=== PATIENT | female | born 1980 | race Caucasian/White ===

== ENCOUNTER 2023-11-03 18:43 | Inpatient (IN) ==
[2023-11-03] MEDS ORDERED: KETOROLAC TROMETHAMINE 15 MG/ML VIAL IV STA (18:56)
[2023-11-03] MEDS ORDERED: ONDANSETRON INJ 2 MG/ML 2 ML VIAL IV STA (18:56)
[2023-11-03 19:31] LABS: Appearance Urine Clear (Clear); Bacteria Urine Automated Negative (Negative); Bilirubin Urine Negative (Negative); Blood Urine Negative (Negative); Color Urine Yellow; Epithelial Cell Urine Auto >30 /lpf (0-5); Glucose Urine UA Negative (Negative); Ketones Urine Trace (Negative); Leukocyte Esterase Urine Negative (Negative); Nitrite Urine Negative (Negative); Specific Gravity Urine 1.023 (1.000-1.030); Urobilinogen Urine Negative (Negative); pH Urine >= 9.0 (4.5-7.5)
[2023-11-03 19:34] LABS: Hemoglobin 12.6 g/dl (12.0-16.0); Mean Corpuscular Hemoglobin 31.7 pg (25.0-34.0); Mean Corpuscular Hgb Conc 34.1 g/dL (32.0-36.0); Mean Corpuscular Volume 93.2 fL (80.0-100.0); Mean Platelet Volume 11.9 fL (9.4-12.4); Platelet Count 202 K/uL (130-400); RDW Coefficient of Variation 12.4 % (11.5-14.5); RDW Standard Deviation 42.7 fL (36.4-46.3); Red Blood Count 3.97 M/uL (4.20-5.40)
[2023-11-03] MEDS ORDERED: MoRPHine SULFATE 4 MG/ML 1 ML CARP\\VIAL IV STA (19:43)
[2023-11-03] MEDS ORDERED: SODIUM CHLORIDE 0.9% 1,000 ML IV ONE (19:43)
[2023-11-03 19:49] LABS: Alanine Aminotransferase 5 U/L (7-52); Albumin Globulin Ratio 1.5 (0.9-2); Alkaline Phosphatase 70 U/L (34-104); Anion Gap 9 (3-11); Aspartate Aminotransferase 9 U/L (13-39); BUN Creatinine Ratio 11.1 (10-20); Bilirubin,Total 0.6 mg/dl (0.2-1.0); Blood Urea Nitrogen 6 mg/dl (6-23); Calcium 9.2 mg/dl (8.6-10.3); Carbon Dioxide 22 mmol/L (21-32); Chloride 105 mmol/L (98-107); Est GFR (Non-African American) 115.6 ml/min; Globulin 2.7 gm/dl (2.5-4.0); Glucose 112 mg/dl (70-99(Fasting)); Lipase 9 U/L (11-82); Sodium 136 mmol/L (136-145); Total Protein 6.7 gm/dl (6.0-8.3)
[2023-11-03 19:50] LABS: Basophils # (auto) 0.03 K/uL (0.00-0.20); Basophils % (auto) 0.3 %; Immature Granulocytes # (auto) 0.02 K/uL (0.01-0.20); Immature Granulocytes % (auto) 0.2 %; Lymphocytes % (auto) 5.7 %; Monocytes % (auto) 3.4 %; Neutrophils # (auto) 7.95 K/uL (1.40-6.50); Neutrophils % (auto) 90.4 %
[2023-11-03 19:55] LABS: Pregnancy Test, Serum Negative (Negative)
[2023-11-03 19:57] LABS: Protein Urine 1+ (Negative)
--- NOTE | 2023-11-03 20:02 | XRay Report ---
XR chest 1V portable HISTORY: 42 years-old Female left flank pain acute left-sided flank pain COMPARISON: None TECHNIQUE: AP view of the chest FINDINGS: Cardiomediastinal and hilar silhouettes are within normal limits. No pneumothorax, pleural effusion o r airspace consolidation. Bones appear grossly intact. IMPRESSION: No acute process. ACT 112: Negative or not required by law. The above report was generated using voice recognition software. It may contain grammatical, syntax o r spelling errors. Electronically signed by: Guru Driver M.D. 11/03/2023 8:01 PM
[2023-11-03] MEDS ORDERED: OPTIRAY 320 500ml IV ONE (20:15)
--- NOTE | 2023-11-03 20:15 | Emergency Department Note ---
Impression & Plan Acute left flank pain, Hematuria, Bradycardia, Lyme disease ED Provider Note NAME: CHANDAN ESTRADA AGE: 42 SEX: F : 1980 ARRIVES VIA: Ambulance INFORMANT: [Patient] ED PROVIDER(S): [Edgar Moffett MD] CHIEF COMPLAINT: Abdominal pain HISTORY OF PRESENT ILLNESS: The patient is a 42-year-old female who states that yesterday afternoon, she began having pain in the left flank and left lower back. The pain moved across to the left lower abdomen. She has had nausea and vomiting. The pain has been fairly severe. No fever. No urinary complaints, no diarrhea. The patient has no history of pain similar to this previously. She has never had a kidney stone. PMHx/PSHx/Social Hx: See Below PHYSICAL EXAM: GENERAL: Patient is in moderate distress from pain. HEENT: No acute trauma, normocephalic atraumatic, mucous membranes dry, no nasal congestion. NECK: No stridor, no adenopathy, no meningismus, trachea is midline. LUNGS: Clear to auscultation bilaterally, no wheeze, no rhonchi, breath sounds equal. HEART: Without murmurs gallops or rubs, regular rate and rhythm. ABDOMEN: Soft, tender in the left upper quadrant, no peritonitis. EXTREMITIES: No cyanosis, full range of motion of all the joints without pain or difficulty. NEUROLOGIC: Oriented x 3, no acute motor or sensory deficits, no focal weakness. SKIN: No jaundice, no diaphoresis. Back: Left flank discomfort to percussion. The pain does seem to worsen with movement and also with palpation of the left flank musculature. No rash. DIFFERENTIAL DIAGNOSIS: Renal colic, splenic injury, hydronephrosis, pyelonephritis, diverticulitis, pneumonia, among others. EMERGENCY DEPARTMENT PROCEDURES: MEDICAL DECISION MAKING: There is no leukocytosis or concerning anemia. There is no renal failure or significant electrolyte abnormality. No concerning liver enzyme elevation. No evidence for pancreatitis. testing is negative. Urinalysis does show some hematuria, no infection. Lyme disease testing was equivocally positive with a positive IgM and negative IgG. Chest film does not show pneumonia or CHF. No pneumothorax. Abdominal and pelvis CT does not show any evidence for ureteral stone or for hydronephrosis. No acute surgical process by CT imaging. Renal ultrasound does not show hydronephrosis or any other concerning pathology. On exam, she did have some left flank discomfort with percussion but also with palpation and her pain did seem to worsen with certain movements. She was quite bradycardic with a heart rate at times in the 30s. Patient received IV Toradol, IV Zofran, IV morphine. She was given IV saline and IV ceftriaxone. The ceftriaxone was for presumed Lyme disease. The patient presents with left flank discomfort which at this point appears musculoskeletal. I suppose she may have passed a small ureteral stone prior to the CT and ultrasound imaging. She was found to be quite bradycardic and has no history of this diagnosis. With a heart rate in the 30s, with her equivocally positive Lyme disease testing, I was concerned about the possibility of a Lyme induced dysrhythmia. I do think the patient requires cardiac monitoring and potentially further testing. I did speak with the patient and case management, the on-call hospitalist was consulted. Prior/Outside records/notes reviewed: EMS notes. ECG per my interpretation: Indication was bradycardia. The ECG shows a sinus bradycardia with a rate of 43. There is no ST elevation, no PVCs. The QTc is 395. Continuous Cardiac Monitoring per my interpretation: An order was placed for continuous cardiac monitoring. The monitor shows a rate of 50 with sinus bradycardia. Imaging/x-ray results per my interpretation: Chest x-ray does not show mediastinal widening, pneumonia or pneumothorax. Chronic Medical/Social conditions affecting care: Care/Management discussed with: Case management, the on-call hospitalist. 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) Social History Smoking Status: Current every day smoker Feels Safe at Home: Yes Allergies Allergies Allergy/AdvReac Type Severity Reaction Status Date / Time latex Allergy Unknown Unknown Verified 11/03/23 19:53 Home Meds Home Medications Medication Instructions Recorded Confirmed No Known Home Medications 11/03/23 11/03/23 Results & Data (ED) Vital Signs Vital Signs - 24 hr 11/03/23 18:47 11/03/23 20:03 11/03/23 20:09 Temperature 36.1 C L Temperature Source Temporal Artery Scan Pulse Rate 52 L 43 L Pulse Rate [Apical] 40 L Respiratory Rate 18 20 Respiratory Effort / Characteristics Non-Labored Spontaneous Non-Labored Respiratory Depth Normal Normal Blood Pressure 96/46 L Blood Pressure [Right Arm] 123/53 L Blood Pressure Mean 62 Blood Pressure Mean [Right Arm] 76 Blood Pressure Position [Right Arm] Lying Pulse Oximetry 100 100 Oxygen Delivery Method Room Air Room Air Sepsis Recent Fever Within 48 Hours No Sepsis New/Unexplained Change in Mental Status N/A Sepsis Action Taken by Nursing No Action Required 11/03/23 22:18 Temperature Temperature Source Pulse Rate Pulse Rate [Apical] 47 L Respiratory Rate 17 Respiratory Effort / Characteristics Non-Labored Spontaneous Respiratory Depth Normal Blood Pressure Blood Pressure [Right Arm] 99/57 L Blood Pressure Mean Blood Pressure Mean [Right Arm] 71 Blood Pressure Position [Right Arm] Pulse Oximetry 99 Oxygen Delivery Method Room Air Sepsis Recent Fever Within 48 Hours Sepsis New/Unexplained Change in Mental Status Sepsis Action Taken by Shelter Medications Current Medication List: was personally reviewed by me Laboratory Data Attestation: I reviewed the patient's lab results. 11/03/23 19:03 11/03/23 19:03 Lab Results 11/03/23 11/03/23 Range/Units 19:03 19:15 WBC 8.80 (4.8-10.8) K/ul RBC 3.97 L (4.20-5.40) M/uL Hgb 12.6 (12.0-16.0) g/dl Hct 37.0 (37.0-47.0) % MCV 93.2 (80.0-100.0) fL MCH 31.7 (25.0-34.0) pg MCHC 34.1 (32.0-36.0) g/dL RDW Std Deviation 42.7 (36.4-46.3) fL RDW Coeff of Leah 12.4 (11.5-14.5) % Plt Count 202 (130-400) K/uL MPV 11.9 (9.4-12.4) fL Immature Gran % (Auto) 0.2 % Neut % (Auto) 90.4 % Lymph % (Auto) 5.7 % [place] % (Auto) 3.4 % Eos % (Auto) 0.0 % Baso % (Auto) 0.3 % Neut # (Auto) 7.95 H (1.40-6.50) K/uL Lymph # (Auto) 0.50 L (1.20-3.40) K/uL [place] # (Auto) 0.30 (0.11-0.59) K/uL Eos # (Auto) 0.00 (0.00-0.50) K/uL Baso # (Auto) 0.03 (0.00-0.20) K/uL Immature Gran # (Auto) 0.02 (0.01-0.20) K/uL Sodium 136 (136-145) mmol/L Potassium 4.0 (3.5-5.1) mmol/L Chloride 105 (98-107) mmol/L Carbon Dioxide 22 (21-32) mmol/L Anion Gap 9 (3-11) BUN 6 (6-23) mg/dl Creatinine 0.54 L (0.6-1.2) mg/dl Est Cr Clr Drug Dosing Not Reportable Est GFR ( Amer) 134.0 ml/min Est GFR (Non-Af Amer) 115.6 ml/min BUN/Creatinine Ratio 11.1 (10-20) Glucose 112 H (70-99(Fasting)) mg/dl Calcium 9.2 (8.6-10.3) mg/dl Total Bilirubin 0.6 (0.2-1.0) mg/dl AST 9 L (13-39) U/L ALT 5 L (7-52) U/L Alkaline Phosphatase 70 (34-104) U/L Total Protein 6.7 (6.0-8.3) gm/dl Albumin 4.0 (3.4-5.0) gm/dl Globulin 2.7 (2.5-4.0) gm/dl Albumin/Globulin Ratio 1.5 (0.9-2) Lipase 9 L (11-82) U/L HCG, Qual Negative (Negative) Urine Color Yellow Urine Appearance Clear (Clear) Urine pH >= 9.0 H (4.5-7.5) Ur Specific [place] 1.023 (1.000-1.030) Urine Protein 1+ H (Negative) Urine Glucose (UA) Negative (Negative) Urine Ketones Trace H (Negative) Urine Blood Negative (Negative) Urine Nitrite Negative (Negative) Urine Bilirubin Negative (Negative) Urine Urobilinogen Negative (Negative) Ur Leukocyte Esterase Negative (Negative) Urine WBC (Auto) 1-5 (0-5) /hpf Urine RBC (Auto) 5-10 H (0-4) /hpf U Hyaline Cast (Auto) 10-30 H (0-5) /lpf U Epithel Cells (Auto) >30 H (0-5) /lpf Urine Bacteria (Auto) Negative (Negative) Lyme Disease IgG Ab Negative (Negative) Lyme Disease IgM Ab Positive A (Negative) Administered Medications Discontinued Medications Sodium Chloride (Nss) 1,000 mls @ 999 mls/hr IV .Q1H1M ONE Stop: 11/03/23 20:43 Last Admin: 11/03/23 20:04 Dose: 999 mls/hr Documented By: CHRIS Ceftriaxone Sodium (Rocephin) 2,000 mg in 50 mls @ 100 mls/hr IV NOW STA Stop: 11/03/23 22:26 Last Admin: 11/03/23 22:28 Dose: 100 mls/hr Documented By: WILLIAM Ioversol (Optiray 320 500ml) 94 ml IV ONCE ONE Stop: 11/03/23 20:16 Last Admin: 11/03/23 20:16 Dose: 94 ml Documented By: FRANCISCA Ketorolac Tromethamine (Ketorolac Tromethamine 15 Mg/Ml Vial) 15 mg IV NOW STA Stop: 11/03/23 18:57 Last Admin: 11/03/23 19:08 Dose: 15 mg Documented By: SHAYLA Morphine Sulfate (Morphine Sulfate 4 Mg/Ml 1 Ml Carp\Vial) 4 mg IV NOW STA Stop: 11/03/23 19:44 Last Admin: 11/03/23 20:04 Dose: 4 mg Documented By: CHRIS Ondansetron HCl (Ondansetron Inj 2 Mg/Ml 2 Ml Vial) 4 mg IV NOW STA Stop: 11/03/23 18:57 Last Admin: 11/03/23 19:08 Dose: 4 mg Documented By: AN Imaging Data Radiologist's Impression: Abdomen/Pelvis CT 11/03/23 19:43 Exam(s): CT ABDOMEN + PELVIS With Contrast IV Amt: 94ml opti 320 EXAM: CT Abdomen and Pelvis With Intravenous Contrast CLINICAL HISTORY: Reason for exam: luq pain. TECHNIQUE: Axial computed tomography images of the abdomen and pelvis with intravenous contrast. Automated exposure control was utilized for the study. A dose lowering technique was utilized adhering to the principles of ALARA. CONTRAST: Patient received 94ml opti 320 of IV contrast COMPARISON: CT abdomen and pelvis February 28, 2013. FINDINGS: Lung bases: Unremarkable. No mass. No consolidation. ABDOMEN: Liver: Unremarkable. No mass. Gallbladder and bile ducts: Unremarkable. No calcified stones. No ductal dilation. Pancreas: Unremarkable. No mass. No ductal dilation. Spleen: Unremarkable. No splenomegaly. Adrenals: Unremarkable. No mass. Kidneys and ureters: Unremarkable. No solid mass. No hydronephrosis. Stomach and bowel: Unremarkable. No acute diverticulitis. No bowel obstruction. No free intraperitoneal air. PELVIS: Appendix: Normal appendix. Bladder: Decompressed urinary bladder. Reproductive: RIGHT ovarian cyst measures 2.9 x 3.0 cm. ABDOMEN and PELVIS: Intraperitoneal space: Unremarkable. No free air. No significant fluid collection. Bones/joints: No acute fracture. No dislocation. Soft tissues: Unremarkable. Vasculature: Unremarkable. No abdominal aortic aneurysm. Lymph nodes: Unremarkable. No enlarged lymph nodes. IMPRESSION: 1. No acute diverticulitis. No bowel obstruction. No free intraperitoneal air. 2. Normal appendix. 3. RIGHT ovarian cyst measures 2.9 x 3.0 cm. Electronically signed by: Sebastien Jones MD 11/03/23 20:38 PM Chest X-Ray 11/03/23 19:43 XR chest 1V portable HISTORY: 42 years-old Female left flank pain acute left-sided flank pain COMPARISON: None TECHNIQUE: AP view of the chest FINDINGS: Cardiomediastinal and hilar silhouettes are within normal limits. No pneumothorax, pleural effusion or airspace consolidation. Bones appear grossly intact. IMPRESSION: No acute process. ACT 112: Negative or not required by law. The above report was generated using voice recognition software. It may contain grammatical, syntax or spelling errors. Electronically signed by: Guru Driver M.D. 11/03/2023 8:01 PM Renal Ultrasound 11/03/23 20:42 Exam(s): US RENAL EXAM: US Retroperitoneal Limited, Renal CLINICAL HISTORY: Reason for exam: left flank pain. TECHNIQUE: Real-time limited ultrasound of the retroperitoneum with image documentation. COMPARISON: No relevant prior studies available. FINDINGS: Right kidney: Unremarkable. No stones. No solid mass. No hydronephrosis. Left kidney: Unremarkable. No stones. No solid mass. No hydronephrosis. IMPRESSION: Normal retroperitoneal ultrasound. Electronically signed by: Sebastien Jones MD 11/03/23 22:17 PM Discharge Plan Visit Data Chief Complaint: Abdominal Pain Stated Complaint: AB PAIN ED Provider: Edgar Moffett Discharge Problem: Acute left flank pain, Hematuria, Bradycardia, Lyme disease Patient Disposition: Admitted As Inpatient Condition: Fair Forms Stand Alone Forms: [facility] Prescriptions Prescriptions: No Action No Known Home Medications Referrals Referrals: Pierre Rahman [Primary Care Provider] - Discharge Problem: Hematuria Qualifiers: Hematuria type: other microscopic Qualified Code(s): R31.29 - Other microscopic hematuria
--- NOTE | 2023-11-03 20:38 | CT Scan Report ---
Exam(s): CT ABDOMEN + PELVIS With Contrast IV Amt: 94ml opti 320 EXAM: CT Abdomen and Pelvis With Intravenous Contrast CLINICAL HISTORY: Reason for exam: luq pain. TECHNIQUE: Axial computed tomography images of the abdomen and pelvis with intravenous contrast. Automated exposure control was utilized for the study. A dose lowering technique was utilized adhering to the principles of ALARA. CONTRAST: Patient received 94ml opti 320 of IV contrast COMPARISON: CT abdomen and pelvis February 28, 2013. FINDINGS: Lung bases: Unremarkable. No mass. No consolidation. ABDOMEN: Liver: Unremarkable. No mass. Gallbladder and bile ducts: Unremarkable. No calcified stones. No ductal dilation. Pancreas: Unremarkable. No mass. No ductal dilation. Spleen: Unremarkable. No splenomegaly. Adrenals: Unremarkable. No mass. Kidneys and ureters: Unremarkable. No solid mass. No hydronephrosis. Stomach and bowel: Unremarkable. No acute diverticulitis. No bowel obstruction. No free intraperitoneal air. PELVIS: Appendix: Normal appendix. Bladder: Decompressed urinary bladder. Reproductive: RIGHT ovarian cyst measures 2.9 x 3.0 cm. ABDOMEN and PELVIS: Intraperitoneal space: Unremarkable. No free air. No significant fluid collection. Bones/joints: No acute fracture. No dislocation. Soft tissues: Unremarkable. Vasculature: Unremarkable. No abdominal aortic aneurysm. Lymph nodes: Unremarkable. No enlarged lymph nodes. IMPRESSION: 1. No acute diverticulitis. No bowel obstruction. No free intraperitoneal air. 2. Normal appendix. 3. RIGHT ovarian cyst measures 2.9 x 3.0 cm. Electronically signed by: Sebastien Jones MD 11/03/23 20:38 PM
[2023-11-03 21:00] LABS: Lyme Ab IgG w/WB Rflx Negative (Negative)
[2023-11-03 21:06] LABS: Lyme Ab IgM w/WB Rflx Positive (Negative)
[2023-11-03] MEDS ORDERED: cefTRIAXone SODIUM 2,000 MG/50 ML BAG IV STA (21:57)
--- NOTE | 2023-11-03 22:18 | Ultrasound Report ---
Exam(s): US RENAL EXAM: US Retroperitoneal Limited, Renal CLINICAL HISTORY: Reason for exam: left flank pain. TECHNIQUE: Real-time limited ultrasound of the retroperitoneum with image documentation. COMPARISON: No relevant prior studies available. FINDINGS: Right kidney: Unremarkable. No stones. No solid mass. No hydronephrosis. Left kidney: Unremarkable. No stones. No solid mass. No hydronephrosis. IMPRESSION: Normal retroperitoneal ultrasound. Electronically signed by: Sebastien Jones MD 11/03/23 22:17 PM
[2023-11-04] MEDS ORDERED: KETOROLAC TROMETHAMINE 15 MG/ML VIAL IV ONE (01:40)
--- NOTE | 2023-11-04 03:08 | History & Physical Report ---
Date of Service November 04, 2023 Assessment & Plan (1) Bradycardia: Plan: 42-year-old female with past med significant for charcoaled Karly tooth disease, peripheral neuropathy comes because of severe left flank and abdominal pain started yesterday. Intially pain started below the left shoulder region then radiated to the left groin region ,severe in nature. Patient was found to bradycardia in the ER and Lyme screen was positive Bradycardia Seems asymptomatic Heart rates in 30s and 40s Lyme screen came back positive Started on Rocephin and doxycycline Will follow echo Telemetry floor Cardiology consult in a.m. Left flank pain CT abdomen pelvis and renal ultrasound unremarkable Labs looks okay UA some RBCs Possible musculoskeletal IV Tylenol as needed for now if not improving will consult pain management DVT prophylaxis SCDs for now Disposition Telemetry floor Full code History of Present Illness Chief Complaint: Left back and abdominal pain, also found to have bradycardia Primary Care Provider: Pierre Rahman 42-year-old female with past med history significant for charcoaled Karly tooth disease, peripheral neuropathy comes because of severe left flank and abdominal pain started yesterday. Intially Pain was started below the left shoulder region then radiated to the left groin region ,severe in nature. Also has some nausea. No fevers. No chest pain or shortness of breath. No cough. No headache. No runny nose or sore throat. No dizziness. Appetite is okay. Normal bowel and bladder movements. Has some blood in the urine in UA. She says has on and off back pains but this is severe. Patient also found to have bradycardia in the ER and lyme screen was positive. She states she had Lyme disease 16 years ago. Somewhat hard of hearing Past medical history. As mentioned above Past surgical history is Social history smokes 1 pack cigarettes daily since last 30 years. Alcohol rarely. Smokes marijuana couple of times a week. Family history. 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) Social History Smoking Status: Current every day smoker Tobacco Type: Cigarettes Cigarettes Per Day: ppd; Hx Alcohol Use: Yes Hx Substance Use: Yes Substance Use Type Other:: cbd vape Preferred Language: Korean Communication Ability: Effective Mold Breaker Required: No Beliefs That Will Affect Care: None Current Living Situation: Parent Other Information That Helps Us Care for You: No Feels Safe at Home: Yes Safety Concerns: Feels Safe At This Time Assistive Devices: Denture - Upper and Denture - Lower Review of Systems Review of Systems: All systems reviewed & are unremarkable except as noted in HPI & below Physical Exam Physical Exam: General- Not in distress Head- atraumatic Eyes- PERRL. ENT- oropharynx clear Neck- supple, no JVD Lungs- clear to auscultation no wheezing or crackles. Heart- Bradycardia; no murmur, no gallop. Abdomen- normal bowel sounds, soft, nontender, no distension. Extremities- no pretibial edema, no erythema seen. Neuro- alert, oriented x 3; PERRL, no facial palsy; no dysarthria; moves extremities. Skin- warm & dry Results & Data Results & Data Vital Signs (Past 12 Hours) Vital Signs Temp Pulse Pulse Resp BP BP Pulse Ox 11/04/23 02:00 45 L 15 115/49 L 97 11/04/23 00:00 39 L 11/03/23 22:18 47 L 17 99/57 L 99 11/03/23 20:09 43 L 11/03/23 20:03 40 L 20 123/53 L 100 11/03/23 18:47 36.1 C L 52 L 18 96/46 L 100 O2 Del Method 11/04/23 02:00 Room Air 11/04/23 00:00 11/03/23 22:18 Room Air 11/03/23 20:09 11/03/23 20:03 Room Air 11/03/23 18:47 Room Air Diagnostic Findings Laboratory Results WBC 8.80 K/ul (4.8-10.8) 11/03/23 19:03 RBC 3.97 M/uL (4.20-5.40) L 11/03/23 19:03 Hgb 12.6 g/dl (12.0-16.0) 11/03/23 19:03 Hct 37.0 % (37.0-47.0) 11/03/23 19: MCV 93.2 fL (80.0-100.0) 11/03/23 19: MCH 31.7 pg (25.0-34.0) 11/03/23 19: MCHC 34.1 g/dL (32.0-36.0) 11/03/23 19: RDW Std Deviation 42.7 fL (36.4-46.3) 11/03/23 19: RDW Coeff of Leah 12.4 % (11.5-14.5) 11/03/23 19: Plt Count 202 K/uL (130-400) 11/03/23 19: MPV 11.9 fL (9.4-12.4) 11/03/23 19: Immature Gran % (Auto) 0.2 % 11/03/23 19: Neut % (Auto) 90.4 % 11/03/23 19: Lymph % (Auto) 5.7 % 11/03/23 19: [place] % (Auto) 3.4 % 11/03/23 19:03 Eos % (Auto) 0.0 % 11/03/23 19: Baso % (Auto) 0.3 % 11/03/23 19: Neut # (Auto) 7.95 K/uL (1.40-6.50) H 11/03/23 19: Lymph # (Auto) 0.50 K/uL (1.20-3.40) L 11/03/23 19: [place] # (Auto) 0.30 K/uL (0.11-0.59) 11/03/23 19:03 Eos # (Auto) 0.00 K/uL (0.00-0.50) 11/03/23 19: Baso # (Auto) 0.03 K/uL (0.00-0.20) 11/03/23 19: Immature Gran # (Auto) 0.02 K/uL (0.01-0.20) 11/03/23 19:03 Sodium 136 mmol/L (136-145) 11/03/23 19:03 Potassium 4.0 mmol/L (3.5-5.1) 11/03/23 19:03 Chloride 105 mmol/L (98-107) 11/03/23 19:03 Carbon Dioxide 22 mmol/L (21-32) 11/03/23 19:03 Anion Gap 9 (3-11) 11/03/23 19:03 BUN 6 mg/dl (6-23) 11/03/23 19:03 Creatinine 0.54 mg/dl (0.6-1.2) L 11/03/23 19:03 Est Cr Clr Drug Dosing Not Reportable 11/03/23 19:03 Est GFR ( Amer) 134.0 ml/min 11/03/23 19:03 Est GFR (Non-Af Amer) 115.6 ml/min 11/03/23 19:03 BUN/Creatinine Ratio 11.1 (10-20) 11/03/23 19:03 Glucose 112 mg/dl (70-99(Fasting)) H 11/03/23 19:03 Calcium 9.2 mg/dl (8.6-10.3) 11/03/23 19:03 Total Bilirubin 0.6 mg/dl (0.2-1.0) 11/03/23 19:03 AST 9 U/L (13-39) L 11/03/23 19:03 ALT 5 U/L (7-52) L 11/03/23 19:03 Alkaline Phosphatase 70 U/L (34-104) 11/03/23 19:03 Total Protein 6.7 gm/dl (6.0-8.3) 11/03/23 19:03 Albumin 4.0 gm/dl (3.4-5.0) 11/03/23 19:03 Globulin 2.7 gm/dl (2.5-4.0) 11/03/23 19:03 Albumin/Globulin Ratio 1.5 (0.9-2) 11/03/23 19:03 Lipase 9 U/L (11-82) L 11/03/23 19:03 HCG, Qual Negative (Negative) 11/03/23 19:03 Urine Color Yellow 11/03/23 19:15 Urine Appearance Clear (Clear) 11/03/23 19:15 Urine pH >= 9.0 (4.5-7.5) H 11/03/23 19:15 Ur Specific [place] 1.023 (1.000-1.030) 11/03/23 19:15 Urine Protein 1+ (Negative) H 11/03/23 19:15 Urine Glucose (UA) Negative (Negative) 11/03/23 19:15 Urine Ketones Trace (Negative) H 11/03/23 19:15 Urine Blood Negative (Negative) 11/03/23 19:15 Urine Nitrite Negative (Negative) 11/03/23 19:15 Urine Bilirubin Negative (Negative) 11/03/23 19:15 Urine Urobilinogen Negative (Negative) 11/03/23 19:15 Ur Leukocyte Esterase Negative (Negative) 11/03/23 19:15 Urine WBC (Auto) 1-5 /hpf (0-5) 11/03/23 19:15 Urine RBC (Auto) 5-10 /hpf (0-4) H 11/03/23 19:15 U Hyaline Cast (Auto) 10-30 /lpf (0-5) H 11/03/23 19:15 U Epithel Cells (Auto) >30 /lpf (0-5) H 11/03/23 19:15 Urine Bacteria (Auto) Negative (Negative) 11/03/23 19:15 Lyme Disease IgG Ab Negative (Negative) 11/03/23 19:03 Lyme Disease IgM Ab Positive (Negative) A 11/03/23 19:03 Impressions Abdomen/Pelvis CT 11/03/23 19:43 Exam(s): CT ABDOMEN + PELVIS With Contrast IV Amt: 94ml opti 320 EXAM: CT Abdomen and Pelvis With Intravenous Contrast CLINICAL HISTORY: Reason for exam: luq pain. TECHNIQUE: Axial computed tomography images of the abdomen and pelvis with intravenous contrast. Automated exposure control was utilized for the study. A dose lowering technique was utilized adhering to the principles of ALARA. CONTRAST: Patient received 94ml opti 320 of IV contrast COMPARISON: CT abdomen and pelvis February 28, 2013. FINDINGS: Lung bases: Unremarkable. No mass. No consolidation. ABDOMEN: Liver: Unremarkable. No mass. Gallbladder and bile ducts: Unremarkable. No calcified stones. No ductal dilation. Pancreas: Unremarkable. No mass. No ductal dilation. Spleen: Unremarkable. No splenomegaly. Adrenals: Unremarkable. No mass. Kidneys and ureters: Unremarkable. No solid mass. No hydronephrosis. Stomach and bowel: Unremarkable. No acute diverticulitis. No bowel obstruction. No free intraperitoneal air. PELVIS: Appendix: Normal appendix. Bladder: Decompressed urinary bladder. Reproductive: RIGHT ovarian cyst measures 2.9 x 3.0 cm. ABDOMEN and PELVIS: Intraperitoneal space: Unremarkable. No free air. No significant fluid collection. Bones/joints: No acute fracture. No dislocation. Soft tissues: Unremarkable. Vasculature: Unremarkable. No abdominal aortic aneurysm. Lymph nodes: Unremarkable. No enlarged lymph nodes. IMPRESSION: 1. No acute diverticulitis. No bowel obstruction. No free intraperitoneal air. 2. Normal appendix. 3. RIGHT ovarian cyst measures 2.9 x 3.0 cm. Electronically signed by: Sebastien Jones MD 11/03/23 20:38 PM Chest X-Ray 11/03/23 19:43 XR chest 1V portable HISTORY: 42 years-old Female left flank pain acute left-sided flank pain COMPARISON: None TECHNIQUE: AP view of the chest FINDINGS: Cardiomediastinal and hilar silhouettes are within normal limits. No pneumothorax, pleural effusion or airspace consolidation. Bones appear grossly intact. IMPRESSION: No acute process. ACT 112: Negative or not required by law. The above report was generated using voice recognition software. It may contain grammatical, syntax or spelling errors. Electronically signed by: Guru Driver M.D. 11/03/2023 8:01 PM Renal Ultrasound 11/03/23 20:42 Exam(s): US RENAL EXAM: US Retroperitoneal Limited, Renal CLINICAL HISTORY: Reason for exam: left flank pain. TECHNIQUE: Real-time limited ultrasound of the retroperitoneum with image documentation. COMPARISON: No relevant prior studies available. FINDINGS: Right kidney: Unremarkable. No stones. No solid mass. No hydronephrosis. Left kidney: Unremarkable. No stones. No solid mass. No hydronephrosis. IMPRESSION: Normal retroperitoneal ultrasound. Electronically signed by: Sebastien Jones MD 11/03/23 22:17 PM ECG Additional Comments: ECG. Sinus bradycardia rate 43. QTc 395 Code Status & VTE Plan VTE Prophylaxis Plan VTE Prophylaxis will be ordered: Yes
[2023-11-04] MEDS ORDERED: NITROGLYCERIN SL 0.4 MG/TAB TAB SL PRN (04:37)
[2023-11-04] MEDS ORDERED: MoRPHine SULFATE 4 MG/ML 1 ML CARP\\VIAL IV STA (04:51)
[2023-11-04] MEDS: D5W AND NSS 1,000 ML IV SCH ×2 (05:47→16:11)
[2023-11-04] MEDS: NICOTINE 21 MG/24 HR TDSY TD SCH ×2 (05:48→08:38)
[2023-11-04] MEDS: DOXYCYCLINE HYCLATE 100 MG in DEXTROSE 5% MINI-B 100 ML IV SCH ×2 (05:48→16:15)
[2023-11-04 06:02] LABS: Basophils # (auto) 0.03 K/uL (0.00-0.20); Basophils % (auto) 0.4 %; Eosinophils # (auto) 0.02 K/uL (0.00-0.50); Eosinophils % (auto) 0.3 %; Hematocrit (blood only) 33.1 % (37.0-47.0); Hemoglobin 11.3 g/dl (12.0-16.0); Immature Granulocytes # (auto) 0.02 K/uL (0.01-0.20); Immature Granulocytes % (auto) 0.3 %; Lymphocytes # (auto) 1.06 K/uL (1.20-3.40); Lymphocytes % (auto) 13.4 %; Mean Corpuscular Hgb Conc 34.1 g/dL (32.0-36.0); Mean Corpuscular Volume 93.8 fL (80.0-100.0); Mean Platelet Volume 11.9 fL (9.4-12.4); Monocytes # (auto) 0.58 K/uL (0.11-0.59); Monocytes % (auto) 7.3 %; Neutrophils # (auto) 6.21 K/uL (1.40-6.50); Neutrophils % (auto) 78.3 %; Platelet Count 172 K/uL (130-400); RDW Coefficient of Variation 12.7 % (11.5-14.5); RDW Standard Deviation 43.8 fL (36.4-46.3); Red Blood Count 3.53 M/uL (4.20-5.40); White Blood Count 7.92 K/ul (4.8-10.8)
[2023-11-04 06:08] LABS: BUN Creatinine Ratio 12.3 (10-20); Calcium 8.4 mg/dl (8.6-10.3); Creatinine Clr Calc Pharmacy 114.5 ml/min; Est GFR (African American) 131.6 ml/min; Est GFR (Non-African American) 113.5 ml/min; Magnesium 1.8 mg/dl (1.7-2.4); Potassium 3.9 mmol/L (3.5-5.1)
[2023-11-04 06:16] LABS: Troponin I High Sensitivity 3.1 pg/ml (0-14)
--- NOTE | 2023-11-04 07:23 | Cardiology Progress Note ---
Date of Service November 04, 2023 Assessment & Plan Admission and Anticipated Discharge Date Admission Date: November 04, 2023 Supervising Physician Co-Signing Physician Notes 42 yo woman presenting with left flank pain * Noted to have bradycardia - ventricular rate in the 30's * + Lyme disease * Antibiotic started to treat Borrelia * ECHOCardiogram: LVEF 55-60%, no major valvular pathology * Troponin negative * Check TSH - + hx of constipation * Patients HR is now in the 50's * Reviewed telemetry - may be junctional * Please check 12-lead EKG * Consider ongoing Telemtry monitoring * Not on Beta blockers, Ca++ Channel Blockers or Digoxin * No pauses * No pre of ayad syncope * K+ goal 4.5-5 * mag goal >2 * Patient takes MSO4 at home - not prescribed * She feels that she may be undergoing narcotic withdrawal * + Ongoing Left-sided flank pain. CT of ABD + Renal US - no obvious pathology to explain presentation * Consider Laxative * Beta HCG- negative Terrence Neil Subjective ID: 42 yo woman presenting with Left Flank Pain CT negative for renal stone Noted to be bradycardic + Lyme titers ABX started Troponin WNL Dx: Lyme Disease Bradycardia Events overnight: - None reported -Ongoing Left Flank pain Subjective: - Left flank pain -Concerns about withdrawal from MSO4 (self administered at home/not prescribed) Review of Systems Review of Systems: All systems reviewed & are unremarkable except as noted in HPI & below Physical Exam Physical Exam: Thin woman + Left flank pain Discomfort on palpation of LLQ JVP at base of neck S1S2 - bradycardic CTA B No C/C/E + Charcot joint deformities - lower extr emities Enlarged MCP joints - bilateral hands Results & Data Vital Signs (Past 12 Hours) Vital Signs Pulse Pulse Resp BP BP Pulse Ox O2 Del Method 11/04/23 04:50 45 L 11/04/23 04:17 44 L 15 109/56 L 98 Room Air 11/04/23 04:00 54 L 15 116/71 98 Room Air 11/04/23 03:57 38 L 11/04/23 02:00 45 L 15 115/49 L 97 Room Air 11/04/23 00:00 39 L 11/03/23 22:18 47 L 17 99/57 L 99 Room Air 11/03/23 20:09 43 L 11/03/23 20:03 40 L 20 123/53 L 100 Room Air Laboratory Results Cardiac Enzymes 11/03/23 11/04/23 Range/Units 19:03 05:27 AST 9 L (13-39) U/L Troponin I High Sens 3.1 (0-14) pg/ml CBC 11/03/23 11/04/23 Range/Units 19:03 05:27 WBC 8.80 7.92 (4.8-10.8) K/ul RBC 3.97 L 3.53 L (4.20-5.40) M/uL Hgb 12.6 11.3 L (12.0-16.0) g/dl Hct 37.0 33.1 L (37.0-47.0) % Plt Count 202 172 (130-400) K/uL Neut # (Auto) 7.95 H 6.21 (1.40-6.50) K/uL Lymph # (Auto) 0.50 L 1.06 L (1.20-3.40) K/uL [place] # (Auto) 0.30 0.58 (0.11-0.59) K/uL Eos # (Auto) 0.00 0.02 (0.00-0.50) K/uL Baso # (Auto) 0.03 0.03 (0.00-0.20) K/uL Comprehensive Metabolic Panel 11/03/23 11/04/23 Range/Units 19:03 05:27 Sodium 136 137 (136-145) mmol/L Potassium 4.0 3.9 (3.5-5.1) mmol/L Chloride 105 108 H (98-107) mmol/L Carbon Dioxide 22 24 (21-32) mmol/L BUN 6 7 (6-23) mg/dl Creatinine 0.54 L 0.57 L (0.6-1.2) mg/dl Glucose 112 H 95 (70-99(Fasting)) mg/dl Calcium 9.2 8.4 L (8.6-10.3) mg/dl AST 9 L (13-39) U/L ALT 5 L (7-52) U/L Alkaline Phosphatase 70 (34-104) U/L Total Protein 6.7 (6.0-8.3) gm/dl Albumin 4.0 (3.4-5.0) gm/dl Intake and Output 11/03/23 11/04/23 11/04/23 22:59 06:59 14:59 Intake Total 1150 / 1150 200 / 200 Balance 1150 / 1150 200 / 200 Intake: IV 1050 / 1050 200 / 200 Acetaminophen 1,000 mg In 100 100 / 100 ml @ 400 mls/hr IV Q8H PRN Rx#: [id number] Doxycycline Hyclate 100 mg In 100 / 100 Dextrose 5% Mini-B 100 ml @ 50 mls/hr IV Q12H [facility] Rx#:[id number] Sodium Chloride 0.9% 1,000 ml @ 1000 / 1000 999 mls/hr IV .Q1H1M ONE Rx#: [id number] cefTRIAXone SODIUM 2,000 mg In 50 / 50 50 ml @ 100 mls/hr IV NOW STA Rx#:[id number] Oral 100 / 100 Other: Other Intake Source 50 Weight 70.4 kg 68.2 kg Weight Measurement Method [facility] Medications Administered Current Inpatient Medications Ceftriaxone Sodium 2,000 mg/ (Dextrose) 50 mls @ 100 mls/hr IV Q24H [facility]; Protocol Stop: 11/14/23 21:59 Doxycycline Hyclate 100 mg/ (Dextrose) 100 mls @ 50 mls/hr IV Q12H [facility] Stop: 11/14/23 04:59 Last Infusion: 11/04/23 08:37 Dose: Infused Dextrose/Sodium Chloride (D5w And Nss) 1,000 mls @ 100 mls/hr IV .Q10H [facility] Stop: 12/04/23 04:36 Last Admin: 11/04/23 05:47 Dose: 100 mls/hr Acetaminophen (Ofirmev) 1,000 mg in 100 mls @ 400 mls/hr IV Q8H PRN PRN Reason: Pain or Fever Stop: 11/07/23 04:36 Last Infusion: 11/04/23 09:32 Dose: Infused Miscellaneous (Remove Nicoderm Patch) 1 each N/A DAILY@0859 [facility] Stop: 12/04/23 08:58 Last Admin: 11/04/23 08:38 Dose: 1 each Miscellaneous (Remove Lidoderm Patch) 1 each N/A ONE ONE Stop: 11/04/23 21:01 Nicotine (Nicotine 21 Mg/24 Hr Tdsy) 21 mg TD DAILY [facility] Stop: 12/04/23 04:54 Last Admin: 11/04/23 08:38 Dose: 21 mg Nitroglycerin (Nitroglycerin Sl 0.4 Mg/Tab Tab) 0.4 mg SL Q5M PRN PRN Reason: Chest Pain Stop: 12/04/23 04:36
[2023-11-04] MEDS: ACETAMINOPHEN 1,000 MG/100 ML VIAL IV PRN ×2 (08:43→20:03)
[2023-11-04] MEDS ORDERED: LIDOCAINE 5% 1 PATCH TD STA (10:14)
[2023-11-04] MEDS ORDERED: KETOROLAC 30 MG/ML VIAL IV ONE (12:07)
--- NOTE | 2023-11-04 14:49 | Hospitalist Progress Note ---
Date of Service November 04, 2023 Assessment & Plan (1) Bradycardia: Plan: 42-year-old female with past med significant for charcoaled Karly tooth disease, peripheral neuropathy comes because of severe left flank and abdominal pain started yesterday. Intially pain started below the left shoulder region then radiated to the left groin region ,severe in nature. Patient was found to bradycardia in the ER and Lyme screen was positive Presented with left flank pain Localized pain left lateral spinal area with radiation to the abdomen without any associated symptoms Has had some physical activity which triggered the pain she thinks CT abdomen pelvis and renal ultrasound unremarkable-no evidence of diverticulitis, stones and incidentally noted to have a right ovarian cyst measuring 2.9 x 3 cm Renal ultrasound has been negative Received intravenous morphine and seems that intravenous Toradol has been working Pain is not much controlled this morning Will advise oral ibuprofen Has been feeling little better Incidental finding of bradycardia with heart rate as low as 39 Seems asymptomatic Lyme screen came back positive-Lyme screen positive for immunoglobin M, she has a remote history of Lyme disease years before Started on Rocephin and doxycycline Will follow echo-echo of the heart has been unremarkable No arrhythmias-heart rate has been running around upper 40s Appreciate cardiology input and recommended We will continue to monitor in telemetry DVT prophylaxis SCDs for now Disposition Telemetry floor Full code Admission and Anticipated Discharge Date Admission Date: November 04, 2023 Subjective 11/04/2023 The patient was seen and examined in telemetry unit She has been complaining of left lower back pain that comes to the abdomen No nausea and or vomiting associated with it and does not have any problem with urine or bowel habit No apparent causes have been found Incidentally noted to have significant bradycardia Review of Systems Review of Systems: All systems reviewed and are unremarkable except as noted below Physical Exam Physical Exam: Lying in bed very anxious and is still has the pain Constitutional: well developed, well nourished, + ill appearing and average body habitus Eyes: PERRL, conjunctivae normal, anicteric sclerae ENMT: external ear and nose normal, oropharynx normal Neck: trachea midline, no thyromegaly Respiratory: no respiratory distress Auscultation: lungs clear to auscultation bilaterally Cardiovascular: Rate/Rhythm: regular rate and regular rhythm; not tachycardic Heart Sounds: normal S1 and normal S2; no murmur Extremities: no edema Gastrointestinal (Abdomen): Inspection/Auscultation: normal bowel sounds; abdomen not distended Percussion/Palpation: + abdomen tender (No tenderness involving the hypogastrium and or flank area) and abdomen soft Musculoskeletal: Localized tenderness noted lateral spinal area at the level of upper lumbar spine Neurologic: normal touch/pain/proprioception and moves all extremities; no focal motor deficits Psychiatric: A+Ox3, euthymic affect Lymphatic: no cervical or axillary lymphadenopathy Results & Data Results & Data Vital Signs (Past 12 Hours) Vital Signs Temp Pulse Pulse Resp BP BP Pulse Ox 11/04/23 10:10 36.6 C 51 L 20 111/68 99 11/04/23 08:11 37.0 C 41 L 16 104/61 97 11/04/23 08:09 40 L 11/04/23 04:50 45 L 11/04/23 04:17 44 L 15 109/56 L 98 11/04/23 04:00 54 L 15 116/71 98 11/04/23 03:57 38 L O2 Del Method 11/04/23 10:10 Room Air 11/04/23 08:11 Room Air 11/04/23 08:09 11/04/23 04:50 11/04/23 04:17 Room Air 11/04/23 04:00 Room Air 11/04/23 03:57 Laboratory Results Short CBC 11/03/23 11/04/23 Range/Units 19:03 05:27 WBC 8.80 7.92 (4.8-10.8) K/ul Hgb 12.6 11.3 L (12.0-16.0) g/dl Hct 37.0 33.1 L (37.0-47.0) % Plt Count 202 172 (130-400) K/uL [facility] 11/03/23 11/04/23 19:03 05:27 Sodium 136 137 Potassium 4.0 3.9 Chloride 105 108 H Carbon Dioxide 22 24 BUN 6 7 Creatinine 0.54 L 0.57 L Glucose 112 H 95 Calcium 9.2 8.4 L Liver Function 11/03/23 Range/Units 19:03 Total Bilirubin 0.6 (0.2-1.0) mg/dl AST 9 L (13-39) U/L ALT 5 L (7-52) U/L Alkaline Phosphatase 70 (34-104) U/L Albumin 4.0 (3.4-5.0) gm/dl Urine 11/03/23 Range/Units 19:15 Urine Color Yellow Urine Appearance Clear (Clear) Urine pH >= 9.0 H (4.5-7.5) Ur Specific [place] 1.023 (1.000-1.030) Urine Protein 1+ H (Negative) Urine Glucose (UA) Negative (Negative) Medications Administered Current Inpatient Medications Ceftriaxone Sodium 2,000 mg/ (Dextrose) 50 mls @ 100 mls/hr IV Q24H [facility]; Protocol Stop: 11/14/23 21:59 Doxycycline Hyclate 100 mg/ (Dextrose) 100 mls @ 50 mls/hr IV Q12H [facility] Stop: 11/14/23 04:59 Last Infusion: 11/04/23 08:37 Dose: Infused Dextrose/Sodium Chloride (D5w And Nss) 1,000 mls @ 100 mls/hr IV .Q10H [facility] Stop: 12/04/23 04:36 Last Admin: 11/04/23 05:47 Dose: 100 mls/hr Acetaminophen (Ofirmev) 1,000 mg in 100 mls @ 400 mls/hr IV Q8H PRN PRN Reason: Pain or Fever Stop: 11/07/23 04:36 Last Infusion: 11/04/23 09:32 Dose: Infused Miscellaneous (Remove Nicoderm Patch) 1 each N/A DAILY@0859 [facility] Stop: 12/04/23 08:58 Last Admin: 11/04/23 08:38 Dose: 1 each Miscellaneous (Remove Lidoderm Patch) 1 each N/A ONE ONE Stop: 11/04/23 21:01 Nicotine (Nicotine 21 Mg/24 Hr Tdsy) 21 mg TD DAILY [facility] Stop: 12/04/23 04:54 Last Admin: 11/04/23 08:38 Dose: 21 mg Nitroglycerin (Nitroglycerin Sl 0.4 Mg/Tab Tab) 0.4 mg SL Q5M PRN PRN Reason: Chest Pain Stop: 12/04/23 04:36
[2023-11-04] MEDS ORDERED: ATROPINE SULFATE 0.1 MG/ML 10ML SYR IV STA (15:12)
[2023-11-04] MEDS: KETOROLAC 30 MG/ML VIAL IV PRN ×2 (16:10→22:32)
--- NOTE | 2023-11-04 18:35 | Electrocardiogram Report ---
Test Reason : Blood Pressure : / mmHG Vent. Rate : 043 BPM Atrial Rate : 043 BPM P-R Int : 118 ms QRS Dur : 086 ms QT Int : 468 ms P-R-T Axes : 069 050 055 degrees QTc Int : 395 ms Marked sinus bradycardia Abnormal ECG No previous ECGs available Confirmed by Juvenal Wang ([id number]) on 11/04/2023 6:35:10 PM Referred By: REFERRED SELF Confirmed By:Juvenal Wang
--- NOTE | 2023-11-04 19:13 | Electrocardiogram Report ---
Test Reason : Blood Pressure : / mmHG Vent. Rate : 045 BPM Atrial Rate : 045 BPM P-R Int : 112 ms QRS Dur : 088 ms QT Int : 464 ms P-R-T Axes : -07 038 046 degrees QTc Int : 401 ms Sinus bradycardia Otherwise normal ECG When compared with ECG of 03-NOV-2023 21:32, (unconfirmed) No significant change was found Confirmed by Juvenal Wang ([id number] on 11/04/2023 7:13:09 PM Referred By: REFERRED SELF Confirmed By:Juvenal Wang
[2023-11-04] MEDS: cefTRIAXone SODIUM 2,000 MG in DEXTROSE 5 % MINI-B 50 ML IV SCH (22:00)
[2023-11-05] MEDS: MoRPHine SULFATE 2 MG/ML CARP IV PRN ×4 (02:22→21:11)
[2023-11-05] MEDS: D5W AND NSS 1,000 ML IV SCH ×3 (02:25→22:50)
[2023-11-05] MEDS: DOXYCYCLINE HYCLATE 100 MG in DEXTROSE 5% MINI-B 100 ML IV SCH ×2 (05:36→16:27)
[2023-11-05] MEDS: KETOROLAC 30 MG/ML VIAL IV PRN ×3 (05:37→18:28)
[2023-11-05] MEDS: ACETAMINOPHEN 1,000 MG/100 ML VIAL IV PRN (08:02)
--- NOTE | 2023-11-05 08:25 | Cardiology Progress Note ---
Date of Service November 05, 2023 Assessment & Plan Admission and Anticipated Discharge Date Admission Date: November 04, 2023 Supervising Physician Co-Signing Physician Notes 42 yo woman presenting with left flank pain * Noted to have bradycardia - ventricular rate in the 30's * + Lyme disease * Antibiotic started to treat Borrelia * ECHOCardiogram: LVEF 55-60%, no major valvular pathology * Troponin negative * Check TSH - + hx of constipation * Patients HR - 30's * 12-lead EKG - sinus bradycardia * Ongoing Telemetry monitoring - no Complete Heart Block * Not on Beta blockers, Ca++ Channel Blockers or Digoxin * No pauses * No pre of ayad syncope * K+ goal 4.5-5 * Mag goal >2 * Patient takes MSO4 at home - not prescribed * She feels that she may be undergoing narcotic withdrawal * + Ongoing Left-sided flank pain. CT of ABD + Renal US - no obvious pathology to explain presentation - improved * Consider Laxative * Beta HCG- negative * DVT ppx Terrence Neil Subjective Events overnight: -Ongoing sinus bradycardia Subjective: * Agitation improved post treating narcotics withdrawal Review of Systems Review of Systems: All systems reviewed & are unremarkable except as noted in HPI & below Physical Exam Physical Exam: Thin woman + Left flank pain Discomfort on palpation of LLQ JVP at base of neck S1S2 - bradycardic CTA B No C/C/E + Charcot joint deformities - lower extr emities Enlarged MCP joints - bilateral hands Results & Data Vital Signs (Past 12 Hours) Vital Signs Temp Pulse Pulse Resp BP Pulse Ox O2 Del Method 11/05/23 07:34 36.6 C 37 L 23 120/59 L 100 Room Air 11/05/23 02:46 36.7 C 32 L 18 113/61 99 Room Air 11/04/23 23:12 37.1 C 40 L 18 110/50 L 100 Room Air 11/04/23 21:30 38 L Laboratory Results Intake and Output 11/04/23 11/05/23 11/05/23 22:59 06:59 14:59 Intake Total 1400 / 2800 1200 / 2800 200 / 200 Balance 1400 / 2800 1200 / 2800 200 / 200 Intake: IV 1250 / 2450 1000 / 2450 200 / 200 Acetaminophen 1,000 mg In 100 100 / 200 100 / 100 ml @ 400 mls/hr IV Q8H PRN Rx#: [id number] D5w and Nss 1,000 ml @ 100 mls/ 1000 / 2000 1000 / 2000 hr IV .Q10H [facility] Rx#:[id number] Doxycycline Hyclate 100 mg In 100 / 200 100 / 100 Dextrose 5% Mini-B 100 ml @ 50 mls/hr IV Q12H [facility] Rx#:[id number] cefTRIAXone SODIUM 2,000 mg In 50 / 50 Dextrose 5 % Mini-B 50 ml @ 100 mls/hr IV Q24H [facility] Rx#: [id number] Oral 150 / 350 200 / 350 Other: Weight 68 kg Medications Administered Current Inpatient Medications Ceftriaxone Sodium 2,000 mg/ (Dextrose) 50 mls @ 100 mls/hr IV Q24H [facility]; Protocol Stop: 11/14/23 21:59 Last Infusion: 11/04/23 22:30 Dose: Infused Doxycycline Hyclate 100 mg/ (Dextrose) 100 mls @ 50 mls/hr IV Q12H [facility] Stop: 11/14/23 04:59 Last Infusion: 11/05/23 07:50 Dose: Infused Dextrose/Sodium Chloride (D5w And Nss) 1,000 mls @ 100 mls/hr IV .Q10H [facility] Stop: 12/04/23 04:36 Last Admin: 11/05/23 02:25 Dose: 100 mls/hr Acetaminophen (Ofirmev) 1,000 mg in 100 mls @ 400 mls/hr IV Q8H PRN PRN Reason: Pain or Fever Stop: 11/07/23 04:36 Last Admin: 11/05/23 08:02 Dose: 400 mls/hr Ketorolac Tromethamine (Ketorolac 30 Mg/Ml Vial) 30 mg IV Q6H PRN PRN Reason: Pain Stop: 11/09/23 15:45 Last Admin: 11/05/23 05:37 Dose: 30 mg Miscellaneous (Remove Nicoderm Patch) 1 each N/A DAILY@0859 [facility] Stop: 12/04/23 08:58 Last Admin: 11/04/23 08:38 Dose: 1 each Morphine Sulfate (Morphine Sulfate 2 Mg/Ml Carp) 2 mg IV Q4H PRN PRN Reason: Pain Stop: 11/18/23 20:57 Last Admin: 11/05/23 02:22 Dose: 2 mg Nicotine (Nicotine 21 Mg/24 Hr Tdsy) 21 mg TD DAILY [facility] Stop: 12/04/23 04:54 Last Admin: 11/04/23 08:38 Dose: 21 mg Nitroglycerin (Nitroglycerin Sl 0.4 Mg/Tab Tab) 0.4 mg SL Q5M PRN PRN Reason: Chest Pain Stop: 12/04/23 04:36
--- NOTE | 2023-11-05 08:56 | Electrocardiogram Report ---
Test Reason : Blood Pressure : / mmHG Vent. Rate : 043 BPM Atrial Rate : 043 BPM P-R Int : 122 ms QRS Dur : 084 ms QT Int : 472 ms P-R-T Axes : -03 026 051 degrees QTc Int : 398 ms Marked sinus bradycardia Abnormal ECG When compared with ECG of 04-NOV-2023 12:57, No significant change was found Confirmed by Modesto Gipson ([id number]) on 11/05/2023 8:55:33 AM Referred By: REFERRED SELF Confirmed By:Modesto Gipson
[2023-11-05] MEDS: NICOTINE 21 MG/24 HR TDSY TD SCH (09:45)
[2023-11-05 12:34] LABS: Thyroid Stimulating Hormone 0.591 uIu/ml (0.300-4.500)
[2023-11-05] MEDS: ENOXAPARIN INJ 40 MG/0.4 ML SYR SQ SCH (13:46)
--- NOTE | 2023-11-05 14:24 | Hospitalist Progress Note ---
Date of Service November 05, 2023 Assessment & Plan (1) Bradycardia: Plan: 42-year-old female with past med significant for charcoaled Karly tooth disease, peripheral neuropathy comes because of severe left flank and abdominal pain started yesterday. Intially pain started below the left shoulder region then radiated to the left groin region ,severe in nature. Patient was found to bradycardia in the ER and Lyme screen was positive Presented with left flank pain Localized pain left lateral spinal area with radiation to the abdomen without any associated symptoms Has had some physical activity which triggered the pain she thinks CT abdomen pelvis and renal ultrasound unremarkable-no evidence of diverticulitis, stones and incidentally noted to have a right ovarian cyst measuring 2.9 x 3 cm Renal ultrasound has been negative Received intravenous morphine and seems that intravenous Toradol has been working Pain is not much controlled this morning Will advise oral ibuprofen Pain is not controlled with current medication regimen Has been using MS Contin from the street Will get pain management evaluation prior to giving any oral narcotic pain medication Incidental finding of bradycardia with heart rate as low as 39 Seems asymptomatic Lyme screen came back positive-Lyme screen positive for immunoglobin M, she has a remote history of Lyme disease years before Started on Rocephin and doxycycline Will follow echo-echo of the heart has been unremarkable No arrhythmias-heart rate has been running around upper 40s Appreciate cardiology input and recommended We will continue to monitor in telemetry Remains bradycardic and may last for a few days if it is due to Lyme carditis Monitor while she is in the hospital DVT prophylaxis SCDs for now Disposition Telemetry floor Full code Admission and Anticipated Discharge Date Admission Date: November 04, 2023 Subjective 11/04/2023 The patient was seen and examined in telemetry unit She has been complaining of left lower back pain that comes to the abdomen No nausea and or vomiting associated with it and does not have any problem with urine or bowel habit No apparent causes have been found Incidentally noted to have significant bradycardia 11/05/2023 Patient was seen and examined in telemetry unit She continues to have bradycardia with heart as low as 36 without any symptoms at rest Still complains to have pain in the left flank No signs and or symptoms of withdrawal from narcotics Asking for more pain medications Review of Systems Review of Systems: All systems reviewed and are unremarkable except as noted below Physical Exam Physical Exam: Lying in bed very anxious and is still has the pain Constitutional: well developed, well nourished, + ill appearing and average body habitus Eyes: PERRL, conjunctivae normal, anicteric sclerae ENMT: external ear and nose normal, oropharynx normal Neck: trachea midline, no thyromegaly Respiratory: no respiratory distress Auscultation: lungs clear to auscultation bilaterally Cardiovascular: Rate/Rhythm: regular rate and regular rhythm; not tachycardic Heart Sounds: normal S1 and normal S2; no murmur Extremities: no edema Gastrointestinal (Abdomen): Inspection/Auscultation: normal bowel sounds; abdomen not distended Percussion/Palpation: + abdomen tender (No tenderness involving the hypogastrium and or flank area) and abdomen soft Neurologic: normal touch/pain/proprioception and moves all extremities; no focal motor deficits Psychiatric: A+Ox3, euthymic affect Lymphatic: no cervical or axillary lymphadenopathy Results & Data Results & Data Vital Signs (Past 12 Hours) Vital Signs Temp Pulse Pulse Resp BP Pulse Ox O2 Del Method 11/05/23 10:45 37.0 C 36 L 22 140/76 100 Room Air 11/05/23 08:54 37 L 11/05/23 07:34 36.6 C 37 L 23 120/59 L 100 Room Air 11/05/23 02:46 36.7 C 32 L 18 113/61 99 Room Air Medications Administered Current Inpatient Medications Enoxaparin Sodium (Enoxaparin Inj 40 Mg/0.4 Ml Syr) 40 mg SQ QAM [facility] Stop: 12/05/23 11:59 Last Admin: 11/05/23 13:46 Dose: 40 mg Ceftriaxone Sodium 2,000 mg/ (Dextrose) 50 mls @ 100 mls/hr IV Q24H [facility]; Protocol Stop: 11/14/23 21:59 Last Infusion: 11/04/23 22:30 Dose: Infused Doxycycline Hyclate 100 mg/ (Dextrose) 100 mls @ 50 mls/hr IV Q12H [facility] Stop: 11/14/23 04:59 Last Infusion: 11/05/23 07:50 Dose: Infused Dextrose/Sodium Chloride (D5w And Nss) 1,000 mls @ 100 mls/hr IV .Q10H [facility] Stop: 12/04/23 04:36 Last Admin: 11/05/23 12:50 Dose: 100 mls/hr Acetaminophen (Ofirmev) 1,000 mg in 100 mls @ 400 mls/hr IV Q8H PRN PRN Reason: Pain or Fever Stop: 11/07/23 04:36 Last Infusion: 11/05/23 08:20 Dose: Infused Ketorolac Tromethamine (Ketorolac 30 Mg/Ml Vial) 30 mg IV Q6H PRN PRN Reason: Pain Stop: 11/09/23 15:45 Last Admin: 11/05/23 11:58 Dose: 30 mg Miscellaneous (Remove Nicoderm Patch) 1 each N/A DAILY@0859 [facility] Stop: 12/04/23 08:58 Last Admin: 11/05/23 09:49 Dose: 1 each Morphine Sulfate (Morphine Sulfate 2 Mg/Ml Carp) 2 mg IV Q4H PRN PRN Reason: Pain Stop: 11/18/23 20:57 Last Admin: 11/05/23 09:48 Dose: 2 mg Nicotine (Nicotine 21 Mg/24 Hr Tdsy) 21 mg TD DAILY [facility] Stop: 12/04/23 04:54 Last Admin: 11/05/23 09:45 Dose: 21 mg Nitroglycerin (Nitroglycerin Sl 0.4 Mg/Tab Tab) 0.4 mg SL Q5M PRN PRN Reason: Chest Pain Stop: 12/04/23 04:36
[2023-11-05] MEDS: cefTRIAXone SODIUM 2,000 MG in DEXTROSE 5 % MINI-B 50 ML IV SCH (21:11)
[2023-11-06] MEDS: KETOROLAC 30 MG/ML VIAL IV PRN ×4 (02:30→21:54)
[2023-11-06 03:37] LABS: 18KDIGG Band NON-REACTIVE; 23KDIGG Band REACTIVE; 23KDIGM Band REACTIVE; 28KDIGG Band NON-REACTIVE; 30KDIGG Band NON-REACTIVE; 39KDIGG Band NON-REACTIVE; 39KDIGM Band NON-REACTIVE; 41KDIGG Band NON-REACTIVE; 41KDIGM Band NON-REACTIVE; 45KDIGG Band NON-REACTIVE; 58KDIGG Band NON-REACTIVE; 66KDIGG Band NON-REACTIVE; 93KDIGG Band NON-REACTIVE; Lyme Antibodies, WB IgG NEGATIVE (NEGATIVE); Lyme Antibodies, WB IgM NEGATIVE (NEGATIVE)
[2023-11-06] MEDS: DOXYCYCLINE HYCLATE 100 MG in DEXTROSE 5% MINI-B 100 ML IV SCH (04:05)
[2023-11-06] MEDS: MoRPHine SULFATE 2 MG/ML CARP IV PRN ×3 (06:02→16:15)
[2023-11-06 07:10] LABS: Calcium 8.6 mg/dl (8.6-10.3); Creatinine Clr Calc Pharmacy 133.1 ml/min; Est GFR (Non-African American) 115.6 ml/min; Magnesium 1.6 mg/dl (1.7-2.4); Potassium 3.5 mmol/L (3.5-5.1)
--- NOTE | 2023-11-06 07:30 | Cardiology Progress Note ---
Date of Service November 06, 2023 Assessment & Plan Admission and Anticipated Discharge Date Admission Date: November 04, 2023 Supervising Physician Co-Signing Physician Notes 42 yo woman presenting with left flank pain * Noted to have bradycardia - ventricular rate in the 30's * + Lyme disease * Antibiotic started to treat Borrelia * ECHOCardiogram: LVEF 55-60%, no major valvular pathology * Troponin negative * TSH - 0.59 * Patients HR - 30's * 12-lead EKG - sinus bradycardia - no first degree AVB, no CHB noted. * Ongoing Telemetry monitoring - no Complete Heart Block or pauses > 3 secs * Not on Beta blockers, Ca++ Channel Blockers or Digoxin * No pre of ayad syncope * K+ goal 4.5-5 * KDUR 40 meq po x 1 * Mag goal >2 * On narcotics - narcotic withdrawal aborted - pt appears comfortable * Left-sided flank pain. CT of ABD + Renal US - no obvious pathology to explain presentation - improved * Consider Laxative * Beta HCG- negative * DVT ppx * Plans to discuss case with EP service. Pattern does not appear to be classic for Lyme given no major CT interval prolongation, pauses or CHB. * Plans to ambulate with PT to see if HR increases * We are wondering if clinical manifestations of bradycardia are related to the underlying conduction disease associated with Karly Charcot Tooth (CMT)? Lit search demonstrated this some patients with CMT may have conduction challenges. Terrence Neil Subjective Events overnight: * None reported * Persistent bradycardia - HR in the low 30's - sinus vs junctional * No reported CHB * No pauses greater than 3 secs Subjective: * No complaints Review of Systems Review of Systems: All systems reviewed & are unremarkable except as noted in HPI & below Physical Exam Physical Exam: Thin woman JVP at base of neck S1S2 - bradycardic CTA B No C/C/E + Charcot joint deformities - lower extr emities Enlarged MCP joints - bilateral hands Results & Data Vital Signs (Past 12 Hours) Vital Signs Temp Pulse Pulse Resp BP Pulse Ox O2 Del Method 11/06/23 02:52 36.7 C 35 L 18 126/60 100 Room Air 11/05/23 23:00 36.6 C 35 L 18 113/62 99 Room Air 11/05/23 22:25 35 L Laboratory Results Comprehensive Metabolic Panel 11/06/23 Range/Units 06:30 Sodium 142 (136-145) mmol/L Potassium 3.5 (3.5-5.1) mmol/L Chloride 114 H (98-107) mmol/L Carbon Dioxide 23 (21-32) mmol/L BUN 7 (6-23) mg/dl Creatinine 0.54 L (0.6-1.2) mg/dl Glucose 104 H (70-99(Fasting)) mg/dl Calcium 8.6 (8.6-10.3) mg/dl Intake and Output 11/05/23 11/06/23 11/06/23 22:59 06:59 14:59 Intake Total 1150 / 2920 450 / 2920 Balance 1150 / 2920 450 / 2920 Intake: IV 1150 / 2450 100 / 2450 D5w and Nss 1,000 ml @ 100 mls/ 1000 / 2000 hr IV .Q10H [facility] Rx#:[id number] Doxycycline Hyclate 100 mg In 100 / 300 100 / 300 Dextrose 5% Mini-B 100 ml @ 50 mls/hr IV Q12H [facility] Rx#:[id number] cefTRIAXone SODIUM 2,000 mg In 50 / 50 Dextrose 5 % Mini-B 50 ml @ 100 mls/hr IV Q24H [facility] Rx#: [id number] Oral 350 / 470 Other: Weight 71.4 kg Medications Administered Current Inpatient Medications Enoxaparin Sodium (Enoxaparin Inj 40 Mg/0.4 Ml Syr) 40 mg SQ QAM [facility] Stop: 12/05/23 11:59 Last Admin: 11/05/23 13:46 Dose: 40 mg Ceftriaxone Sodium 2,000 mg/ (Dextrose) 50 mls @ 100 mls/hr IV Q24H [facility]; Protocol Stop: 11/14/23 21:59 Last Infusion: 11/05/23 21:41 Dose: Infused Doxycycline Hyclate 100 mg/ (Dextrose) 100 mls @ 50 mls/hr IV Q12H [facility] Stop: 11/14/23 04:59 Last Infusion: 11/06/23 06:05 Dose: Infused Dextrose/Sodium Chloride (D5w And Nss) 1,000 mls @ 100 mls/hr IV .Q10H [facility] Stop: 12/04/23 04:36 Last Admin: 11/05/23 22:50 Dose: 100 mls/hr Acetaminophen (Ofirmev) 1,000 mg in 100 mls @ 400 mls/hr IV Q8H PRN PRN Reason: Pain or Fever Stop: 11/07/23 04:36 Last Infusion: 11/05/23 08:20 Dose: Infused Ketorolac Tromethamine (Ketorolac 30 Mg/Ml Vial) 30 mg IV Q6H PRN PRN Reason: Pain Stop: 11/09/23 15:45 Last Admin: 11/06/23 02:30 Dose: 30 mg Miscellaneous (Remove Nicoderm Patch) 1 each N/A DAILY@0859 [facility] Stop: 12/04/23 08:58 Last Admin: 11/05/23 09:49 Dose: 1 each Morphine Sulfate (Morphine Sulfate 2 Mg/Ml Carp) 2 mg IV Q4H PRN PRN Reason: Pain Stop: 11/18/23 20:57 Last Admin: 11/06/23 06:02 Dose: 2 mg Nicotine (Nicotine 21 Mg/24 Hr Tdsy) 21 mg TD DAILY [facility] Stop: 12/04/23 04:54 Last Admin: 11/05/23 09:45 Dose: 21 mg Nitroglycerin (Nitroglycerin Sl 0.4 Mg/Tab Tab) 0.4 mg SL Q5M PRN PRN Reason: Chest Pain Stop: 12/04/23 04:36
[2023-11-06] MEDS ORDERED: POTASSIUM CHLORIDE CRTAB 20 MEQ TABCR PO STA (08:17)
[2023-11-06] MEDS: ENOXAPARIN INJ 40 MG/0.4 ML SYR SQ SCH (08:51)
[2023-11-06] MEDS: NICOTINE 21 MG/24 HR TDSY TD SCH (08:51)
[2023-11-06] MEDS: D5W AND NSS 1,000 ML IV SCH ×2 (08:52→20:19)
--- NOTE | 2023-11-06 10:49 | Pain Management Consultation ---
Date of Consultation November 06, 2023 Assessment & Plan (1) Wgnjbuz-Lvnem-Zcmfr disease: (2) Lyme disease: (3) Bradycardia: (4) Acute left flank pain: (5) Thoracic back pain: (6) Radicular pain of thoracic region: (7) Paraspinal muscle spasm: (8) Myofascial pain: Plan 1. At home, patient has been taking MS Contin 100 mg, which she cuts into 8 pieces, for an approximate 12 mg dose. She has been trying to wean herself off of this, but has had difficulty with withdrawal symptoms when attempting to do so. She says she was released from a pain clinic in [place] due to using marijuana. She has previously discussed medical marijuana use, but the patient enjoys using firearms for leisure and protective purposes, so she does not wish to pursue that option any further. She has been finding the oral narcotic medications to be of most benefit to her. * However, patient no longer has a prescriber for the MS Contin, and she has just been taking what she has left over since she has been able to cut down the pills for a lower dosage. * Upon further review of the PDMP, there is no record of a prescription for this medication, nor for any other controlled medication, so it does seem that the patient is getting this off the street. * With the above noted, and since she will not have a prescriber for this medication, I would recommend weaning the patient off of the IV morphine while inpatient and utilizing Remeron, clonidine, and Imodium for any withdrawal symptoms. * Patient has previously discussed about potentially going onto Suboxone, but she says she knows some people on this, and they cannot get off of it. So, she is hesitant to go that route. However, if the patient wishes, she may pursue this and find a subscriber in the community. * Do not recommend any prescriptions for home opiates. 2. Discussed initiating medication to address nerve pain. * Gabapentin versus Lyrica. Would recommend starting with gabapentin and titrating to 300 mg TID -- Order placed. 3. Give consideration for initiating duloxetine 30 mg daily -- Order placed. * possibly increase to twice daily. 4. May utilize topical interventions, to include 1 or more of the following: * Lidocaine patch, capsaicin/menthol/camphor, diclofenac gel, etc. * Order placed for 5% Lidoderm patch and topical Zostrix capsaicin. 5. Discussed doing trigger point injections to the thoracic paraspinal and periscapular rhomboid regions of spasm and tenderness. * Will plan to pursue this tomorrow once supplies have been gathered. 6. Pain in the left flank and abdomen seems to be of a radicular nature, as she is nontender over the rib cage and left abdomen where she is localizing some of the pain to. However, she is tender over the left mid thoracic and medial and inferior periscapular regions, with palpable spasm. * Ordered thoracic spine x-ray series to evaluate for vertebral abnormality. * May need to give future consideration for thoracic spine MRI pending response to medication changes and planned trigger point injections. History of Present Illness Reason for Consultation: L flank pain Attending Physician: Jun Michel MD History of Present Illness Patient is a 42-year-old female that presented to the [facility] ED on 11/03/2023, stating that the day prior she began having pain in the left periscapular and left flank region, with some radiation into the left upper quadrant of the abdomen. She admitted to some nausea and vomiting. She was saying the pain was quite severe. This pain was new to the patient, and she denied any history of kidney stones. 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 Patient says that she walks abnormally due to this, and has to use a cane, which she switches from side to side. She wonders if this could be contributing to her pain. 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 Patient denies any pain to the right side of her back. She denies any radiation of pain into either upper extremity. She says that her legs are always bother her and her somewhat painful, but she does understand that she has the CMT and peripheral neuropathy. 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 Workup in the ER demonstrated the patient to have bradycardia and her Lyme screen was positive for [address] bands[address] Case discussed with Dr[address] Astrid Antony. 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 Mood and affect is appropriate. In no acute distress. HEAD: Normocephalic; atraumatic. CHEST: Regular chest respiration and excursion. EXTREMITIES: Distal sensation and pulses intact bilaterally. BACK: Diminished ROM. No midline or facet tenderness. + tender left mid- thoracic paraspinal and medial/inferior periscapular (rhomboids); w/ palpable spasms. Nontender over left ribs. Nontender left abdomen. NEURO: CN II-XII grossly intact with no focal deficits noted. Steppage gait with bilateral foot drop and foot supination. SKIN: No lesions, erythema, or rashes noted. Gastrointestinal (Abdomen): Inspection/Auscultation: abdomen normal to inspection; abdomen not distended Musculoskeletal: Spine: + thoracic spinal tenderness and + paraspinal tenderness; no step off deformity and no thoraco-lumbar mass Neurologic: Gait: + steppage gait Results (Pain Clinic) Diagnostic Review Radiology Findings: THORACIC SPINE 3 VIEWS CLINICAL HISTORY: Left-sided thoracic back pain. FINDINGS: AP, lateral, and swimmer's views of the thoracic spine are obtained. No prior studies are available for comparison at the time of dictation. The skeletal structures are well mineralized. There is no radiographic evidence of fracture or malalignment. Vertebral body height and alignment are maintained throughout the thoracic spine. Anterior and lateral marginal osteophytes are seen throughout. The transverse processes and pedicles are intact as seen on the frontal view. The disc spaces are maintained. The imaged lung parenchyma appears clear. IMPRESSION: No acute bony abnormality is seen involving the thoracic spine. ACT 112: Negative or not required by law. Electronically signed by: Edgar Roland M.D. 11/06/2023 12:10 PM Dictated: 11/06/23 1209 Transcribed: 11/06/23 1201
--- NOTE | 2023-11-06 12:12 | XRay Report ---
THORACIC SPINE 3 VIEWS CLINICAL HISTORY: Left-sided thoracic back pain. FINDINGS: AP, lateral, and swimmer's views of the thoracic spine are obtained. No prior studies are a vailable for comparison at the time of dictation. The skeletal structures are well mineralized. There is no radiographic evidence of fracture or malalignment. Vertebral body height and alignment are bart ntained throughout the thoracic spine. Anterior and lateral marginal osteophytes are seen throughout. The transverse processes and pedicles are intact as seen on the frontal view. The disc spaces are ma intained. The imaged lung parenchyma appears clear. IMPRESSION: No acute bony abnormality is seen involving the thoracic spine. ACT 112: Negative or not required by law. Electronically signed by: Edgar Roland M.D. 11/06/2023 12:10 PM
[2023-11-06] MEDS: methylPREDNISolone 30 MG in SYRINGE 0 ML IV SCH ×2 (14:49→21:51)
[2023-11-06] MEDS ORDERED: CAPSAICIN CR 0.075% 60 GM TUBE EXT PRN (15:59)
--- NOTE | 2023-11-06 16:53 | Hospitalist Progress Note ---
Date of Service November 06, 2023 Assessment & Plan (1) Bradycardia: Plan: 42-year-old female with past med significant for Charcot Karly tooth disease, peripheral neuropathy comes because of severe left flank and abdominal pain started the day prior to arrival. Initially pain started below the left shoulder region then radiated to the left groin region ,severe in nature. Patient was found to be bradycardic in the ER and Lyme screen was positive. She is being managed for the following: Bradycardia: Noted at presentation in the ED, incidental finding. Patient asymptomatic. TSH WNL, admitting EKG with heart rate of 43, UT interval 118, QTc 395. Echocardiogram with LVEF 55 to 60%, no major valvular pathology Admitting Lyme screen positive with IgM being positive [patient had history of Lyme several years back] ---> confirmatory test negative for Lyme disease. Patient was started on Rocephin 11/04 and doxycycline 11/04 for concern of Lyme carditis, will discontinue doxycycline 11/06. Doubt this is Lyme disease [UT interval prolongation not noted, HB not noted], but will complete 14-day course of antibiotic at this time. 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 Continue with telemetry monitoring. Cardiology on board, discussing with EP service, trial of methylprednisolone today. Will follow cardiac recs. Left flank pain: Patient presented with left flank pain, radicular in nature. Patient is tender left mid Thoracics paraspinal region. Thoracic spine x-ray with no acute finding. Possibly using MS Contin from the street as an outpatient. Pain management evaluated, appreciate recommendation. Considering trigger point injection. If no improvement, consider MRI thoracic spine as an outpatient. Taper down morphine use, to q8h 2mg today. DVT prophylaxis: Enoxaparin Disposition: Telemetry floor Full code Admission and Anticipated Discharge Date Admission Date: November 04, 2023 Subjective Patient was seen and examined at bedside. Patient was lying in bed, on room air, resting comfortably, not in any acute distress. Patient denies any palpitations/skipping a beat/chest pain/dizziness/lightheadedness. Patient reports eating okay and moving bowels okay. Patient denies any shortness of breath. Telemetry with persistent bradycardia with heart rate in 30s. Physical Exam Physical Exam: GENERAL: Alert and oriented x3. NAD, on RA. HEENT: No pallor, no icterus. Pupils equal, round and reactive to light. Oral mucosa moist. NECK: No JVD, no neck masses. HEART: S1 and S2 heard. Regular rate and rhythm. Bradycardia. No murmur, no g allop. RESPIRATORY SYSTEM: Normal AP diameter. No accessory muscle use. No wheezing, no crackles. ABDOMEN: Soft, bowel sounds present, nontender, no distention. CENTRAL NERVOUS SYSTEM: No facial droop. Speech is clear. Obeys simple commands. Moves extremities. EXTREMITIES: No edema, no erythema seen. Tender mid-thoracic paraspinal region. Results & Data Results & Data Vital Signs (Past 12 Hours) Vital Signs Temp Pulse Pulse Resp BP Pulse Ox O2 Del Method 11/06/23 13:12 37.0 C 38 L 18 120/67 98 Room Air 11/06/23 08:00 36.9 C 40 L 16 132/66 100 Room Air 11/06/23 07:10 47 L
[2023-11-06] MEDS: MAGNESIUM SULFATE / D5W 1 GM/100 ML BAG IV SCH ×2 (17:29→19:25)
[2023-11-06] MEDS: LIDOCAINE 5% 1 PATCH TD SCH (18:33)
[2023-11-06] MEDS: GABAPENTIN 300 MG CAP PO SCH (21:48)
[2023-11-06] MEDS: cefTRIAXone SODIUM 2,000 MG in DEXTROSE 5 % MINI-B 50 ML IV SCH (21:49)
[2023-11-07] MEDS: MoRPHine SULFATE 2 MG/ML CARP IV PRN ×2 (00:30→08:37)
[2023-11-07] MEDS: D5W AND NSS 1,000 ML IV SCH (06:28)
[2023-11-07] MEDS: methylPREDNISolone 30 MG in SYRINGE 0 ML IV SCH (06:28)
[2023-11-07] MEDS: KETOROLAC 30 MG/ML VIAL IV PRN (06:28)
[2023-11-07 07:12] LABS: Hematocrit (blood only) 32.5 % (37.0-47.0); Hemoglobin 11.3 g/dl (12.0-16.0); Mean Corpuscular Hemoglobin 32.2 pg (25.0-34.0); Mean Corpuscular Hgb Conc 34.8 g/dL (32.0-36.0); Mean Corpuscular Volume 92.6 fL (80.0-100.0); Mean Platelet Volume 12.2 fL (9.4-12.4); Platelet Count 156 K/uL (130-400); RDW Coefficient of Variation 12.6 % (11.5-14.5); RDW Standard Deviation 42.5 fL (36.4-46.3); Red Blood Count 3.51 M/uL (4.20-5.40)
[2023-11-07 07:30] LABS: Calcium 8.7 mg/dl (8.6-10.3); Magnesium 1.9 mg/dl (1.7-2.4)
[2023-11-07 07:36] LABS: BUN Creatinine Ratio 7.3 (10-20); Creatinine Clr Calc Pharmacy 175.2 ml/min; Est GFR (African American) 146.7 ml/min; Est GFR (Non-African American) 126.5 ml/min; Phosphorus 2.2 mg/dl (2.5-4.9)
--- NOTE | 2023-11-07 07:52 | Cardiology Progress Note ---
Date of Service November 07, 2023 Assessment & Plan Admission and Anticipated Discharge Date Admission Date: November 04, 2023 Supervising Physician Co-Signing Physician Notes 42 yo woman presenting with left flank pain * Noted to have bradycardia - ventricular rate in the 30's * + Lyme disease * Antibiotic started to treat Borrelia; complete ABX course * ECHOCardiogram: LVEF 55-60%, no major valvular pathology * Troponin negative * TSH - 0.59 * Patients HR - 30's - initially * 12-lead EKG - sinus bradycardia - no first degree AVB, no CHB noted. * Ongoing Telemetry monitoring - no Complete Heart Block or pauses > 3 secs * Not on Beta blockers, Ca++ Channel Blockers or Digoxin * No pre of ayad syncope * Pt responded to steroid therapy - HR's in the 50-60's - Sinus arabella/NSR * K+ goal 4.5-5 * Mag goal >2 * On narcotics - narcotic withdrawal aborted - pt appears comfortable * Left-sided flank pain. CT of ABD + Renal US - no obvious pathology to explain presentation - improved * Consider Laxative * Beta HCG- negative * DVT ppx * Will stop IV Steroids * Plans for Outpt ZioPatch AT * Follow up with [facility]. * Please call back with any additional questions Terrence Neil Subjective Events overnight: * HR's in the 50-60's * NSR Subjective: * No complaints * Feels excellent Review of Systems Review of Systems: All systems reviewed & are unremarkable except as noted in HPI & below Physical Exam Physical Exam: Thin woman JVP at base of neck S1S2 - bradycardic CTA B No C/C/E + Charcot joint deformities - lower extr emities Enlarged MCP joints - bilateral hands Results & Data Vital Signs (Past 12 Hours) Vital Signs Temp Pulse Pulse Resp BP Pulse Ox O2 Del Method 11/07/23 07:23 46 L 11/07/23 02:39 36.8 C 49 L 16 110/67 97 Room Air 11/06/23 23:02 33 L 11/06/23 22:41 36.6 C 38 L 16 118/53 L 97 Room Air Laboratory Results CBC 11/07/23 Range/Units 06:40 WBC 7.40 (4.8-10.8) K/ul RBC 3.51 L (4.20-5.40) M/uL Hgb 11.3 L (12.0-16.0) g/dl Hct 32.5 L (37.0-47.0) % Plt Count 156 (130-400) K/uL Comprehensive Metabolic Panel 11/07/23 Range/Units 06:40 Sodium 140 (136-145) mmol/L Potassium 4.0 (3.5-5.1) mmol/L Chloride 113 H (98-107) mmol/L Carbon Dioxide 20 L (21-32) mmol/L BUN 3 L (6-23) mg/dl Creatinine 0.41 L (0.6-1.2) mg/dl Glucose 117 H (70-99(Fasting)) mg/dl Calcium 8.7 (8.6-10.3) mg/dl Intake and Output 11/06/23 11/07/23 11/07/23 22:59 06:59 14:59 Intake Total 1366.667 / 3566.667 1200 / 3566.667 Balance 1366.667 / 3566.667 1200 / 3566.667 Intake: IV 1246.667 / 3246.667 1000 / 3246.667 D5w and Nss 1,000 ml @ 100 mls/ 1000 / 3000 1000 / 3000 hr IV .Q10H [facility] Rx#:[id number] Magnesium Sulfate / D5w 1 gm In 196.667 / 196.667 100 ml @ 50 mls/hr IV Q2H [facility] Rx#:[id number] cefTRIAXone SODIUM 2,000 mg In 50 / 50 Dextrose 5 % Mini-B 50 ml @ 100 mls/hr IV Q24H [facility] Rx#: [id number] Oral 120 / 320 200 / 320 Other: Weight 71.3 kg Medications Administered Current Inpatient Medications Capsaicin (Capsaicin Cr 0.075% 60 Gm Tube) 1 appln EXT TID PRN PRN Reason: Pain Stop: 12/06/23 15:58 Duloxetine HCl (Duloxetine Hcl 30 Mg Cap) 30 mg PO QAM [facility] Stop: 12/07/23 08:59 Enoxaparin Sodium (Enoxaparin Inj 40 Mg/0.4 Ml Syr) 40 mg SQ QAM [facility] Stop: 12/05/23 11:59 Last Admin: 11/06/23 08:51 Dose: 40 mg Gabapentin (Gabapentin 300 Mg Cap) 300 mg PO TID [facility] Stop: 12/06/23 20:59 Last Admin: 11/06/23 21:48 Dose: 300 mg Ceftriaxone Sodium 2,000 mg/ (Dextrose) 50 mls @ 100 mls/hr IV Q24H [facility]; Rox col Stop: 11/14/23 21:59 Last Infusion: 11/06/23 22:22 Dose: Infused Dextrose/Sodium Chloride (D5w And Nss) 1,000 mls @ 100 mls/hr IV .Q10H [facility] Stop: 12/04/23 04:36 Last Admin: 11/07/23 06:28 Dose: 100 mls/hr Methylprednisolone 30 mg/ (Syringe) 0.48 mls @ 1.5 mls/min IV Q8 [facility] Stop: 12/06/23 13:59 Last Admin: 11/07/23 06:28 Dose: 1.5 mls/min Ketorolac Tromethamine (Ketorolac 30 Mg/Ml Vial) 30 mg IV Q6H PRN PRN Reason: Pain Stop: 11/09/23 15:45 Last Admin: 11/07/23 06:28 Dose: 30 mg Lidocaine (Lidocaine 5% 1 Patch) 1 patch TD QAM [facility] Stop: 12/06/23 16:14 Last Admin: 11/06/23 18:33 Dose: 1 patch Miscellaneous (Remove Nicoderm Patch) 1 each N/A DAILY@0859 [facility] Stop: 12/04/23 08:58 Last Admin: 11/06/23 08:56 Dose: 1 each Miscellaneous (Remove Lidoderm Patch) 1 each N/A DAILY@2100 [facility] Stop: 12/06/23 20:59 Last Admin: 11/06/23 21:48 Dose: 1 each Morphine Sulfate (Morphine Sulfate 2 Mg/Ml Carp) 2 mg IV Q8H PRN PRN Reason: Pain Stop: 11/21/23 00:00 Last Admin: 11/07/23 00:30 Dose: 2 mg Nicotine (Nicotine 21 Mg/24 Hr Tdsy) 21 mg TD DAILY [facility] Stop: 12/04/23 04:54 Last Admin: 11/06/23 08:51 Dose: 21 mg Nitroglycerin (Nitroglycerin Sl 0.4 Mg/Tab Tab) 0.4 mg SL Q5M PRN PRN Reason: Chest Pain Stop: 12/04/23 04:36
--- NOTE | 2023-11-07 08:16 | Electrocardiogram Report ---
Test Reason : Blood Pressure : / mmHG Vent. Rate : 035 BPM Atrial Rate : 035 BPM P-R Int : 132 ms QRS Dur : 088 ms QT Int : 494 ms P-R-T Axes : 042 029 057 degrees QTc Int : 377 ms Marked sinus bradycardia Nonspecific T wave abnormality Anteroseptal leads Abnormal ECG When compared with ECG of 05-NOV-2023 05:00, HR has decreased by 8 bpm Otherwise no significant change Confirmed by Modesto Gipson ([id number]) on 11/07/2023 8:16:11 AM Referred By: REFERRED SELF Confirmed By:Modesto Gipson
[2023-11-07] MEDS: NICOTINE 21 MG/24 HR TDSY TD SCH (08:39)
[2023-11-07] MEDS: GABAPENTIN 300 MG CAP PO SCH (08:40)
--- NOTE | 2023-11-07 08:57 | Pain Management Progress Note ---
Date of Service November 07, 2023 Assessment & Plan (1) Myofascial pain: (2) Paraspinal muscle spasm: (3) Radicular pain of thoracic region: (4) Thoracic back pain: Back pain laterality: left Chronicity: acute Qualified Code(s): M54.6 - Pain in thoracic spine (5) Lyme disease: (6) Bradycardia: (7) Acute left flank pain: Plan 1. Again, at home, patient has been taking MS Contin 100 mg, which she cuts into 8 pieces, for an approximate 12 mg dose. She has been trying to wean herself off of this, but has had difficulty with withdrawal symptoms when attempting to do so. She says she was released from a pain clinic in [place] due to using marijuana. She has previously discussed medical marijuana use, but the patient enjoys using firearms for leisure and protective purposes, so she does not wish to pursue that option any further. * Noting the prescription discrepancy yesterday, with the PDMP not showing any record of a prescriber for the MS Contin, I did inquire about this with the patient. She continues to stick with the story that this is a leftover prescription from when she was seeing a pain clinic in [place], [place]. I do have suspicion that this drug is being obtained from the street. * Again, with the above noted, and since she will not have a prescriber for this medication, I would recommend weaning the patient off of the IV morphine while inpatient and utilizing Remeron (15 mg), clonidine (0.1 mg q8h), and Imodium (2 mg) for any withdrawal symptoms. * Patient may continue to give consideration for pursuing a community prescriber for Suboxone. * Continue to not recommend any prescriptions for home opiates. 2. Continue gabapentin 300 mg TID. 3. Continue duloxetine 30 mg daily. * Possibly increase to twice daily if warranted. 4. Continue to utilize topical interventions: * Lidoderm patch 5% and Zostrix capsaicin. 5. Pain in the left flank and abdomen is like of a radicular nature, as she remained nontender over the rib cage and left abdomen where she is localizing some of the pain to. She remains tender over the left mid thoracic and medial and inferior periscapular regions, with palpable spasm. * May give future consideration for thoracic spine MRI pending response to medi cation changes and today's trigger point injections; this would be facilitated as an outpatient at the pain management clinic if necessary. 6. In light of discovering that the patient's daughter also has CMT, I would recommend that they pursue finding an option for a clinical trial, potentially with [facility], [facility], or [facility]. 7. Recommended TPI's into the areas of concern. * The risks, benefits, and alternatives of the procedure were discussed in detail with the patient, and in full understanding of the procedure to be performed, the patient elects to proceed as discussed. * See procedure note section for details. 8. Apply moist heat and perform massage over the next couple of days. 9. Avoid soaking the area for 48 hours. 10. Thank you for this consultation. The pain management service will sign off at this time. Patient may follow-up in the pain management clinic as needed. TRIGGER POINT INJECTION Diagnosis: Myofascial Pain Injection Site: Thoracic paraspinal and rhomboid/periscapular, left Performed By: Supa Whitaker PA-C Medications used: Ropivacaine 0.5% -7 mL Kenalog 40 mg/mL -2 mL Toradol 30 mg/mL -1 mL Prior to starting, the diagnosis and the procedure was reviewed with the patient in detail. Possible risks and complications including infection, bleeding, damage to surrounding structures and increased pain were discussed. Alternative therapies were also reviewed. All questions were answered and they agreed to proceed. Informed consent was obtained. Allergies and medication list was reviewed. The patient was placed in sitting position. Immediately prior to starting the procedure, a time out was conducted with the staff and the patient where the patient was identified, proposed procedure was verified, consent was reviewed and the proper site for the planned procedure was identified. Patient was not given any intravenous sedation and constant verbal contact was maintained throughout the procedure. On examination, no signs of skin breakdown or infection were noted at the injection site. The site was cleansed with ChloraPrep followed by alcohol. Sterile technique was used throughout the procedure. After identifying skeletal landmarks, the above-noted musculature was injected at 4 separate locations with approximately 2.5 mL at each site, from a solution containing 7 mL of 0.5% Ropivacaine MPF, 2 mL of 30 mg/mL Toradol, and 1 mL of 40 mg/mL Kenalog. Aspiration was negative. Hemostasis noted. Patient tolerated the procedure uneventfully without complications. Patient was observed for approximately 15 minutes and discharged home with standard discharge instructions. Admission and Anticipated Discharge Date Admission Date: November 04, 2023 Subjective Patient states that her back is actually feeling better today than it has for the past couple of days. She did have 1 dose of gabapentin last night, and the Cymbalta has not been started yet. She is wearing the lidocaine patch. It seems the patient does wish to be discharged soon. She has not worked with any therapy up to this point. She may give consideration for Suboxone if that is one of her only options. She says that she passed this CMT onto her daughter, so her ex- has done quite a bit of research on this disease. She may give consideration for looking into a location that offers clinical trials. Case discussed with Dr. Astrid Antony. Physical Exam Physical Exam: GENERAL: Speech and cognition is intact. Mood and affect is appropriate. In no acute distress. HEAD: Normocephalic; atraumatic. CHEST: Regular chest respiration and excursion. EXTREMITIES: Distal sensation and pulses intact bilaterally. BACK: Diminished ROM. No midline or facet tenderness. + tender left mid- thoracic paraspinal and medial/inferior periscapular (rhomboids); w/ palpable spasms. Nontender over left ribs. Nontender left abdomen. NEURO: CN II-XII grossly intact with no focal deficits noted. SKIN: No lesions, erythema, or rashes noted. Gastrointestinal (Abdomen): Inspection/Auscultation: abdomen normal to inspection; abdomen not distended Musculoskeletal: Spine: + thoracic spinal tenderness and + paraspinal tenderness; no step off deformity and no thoraco-lumbar mass Results (Pain Clinic) Diagnostic Review Radiology Findings: THORACIC SPINE 3 VIEWS CLINICAL HISTORY: Left-sided thoracic back pain. FINDINGS: AP, lateral, and swimmer's views of the thoracic spine are obtained. No prior studies are available for comparison at the time of dictation. The skeletal structures are well mineralized. There is no radiographic evidence of fracture or malalignment. Vertebral body height and alignment are maintained throughout the thoracic spine. Anterior and lateral marginal osteophytes are seen throughout. The transverse processes and pedicles are intact as seen on the frontal view. The disc spaces are maintained. The imaged lung parenchyma appears clear. IMPRESSION: No acute bony abnormality is seen involving the thoracic spine. ACT 112: Negative or not required by law. Electronically signed by: Edgar Roland M.D. 11/06/2023 12:10 PM Dictated: 11/06/23 1209 Transcribed: 11/06/23 1209
[2023-11-07] MEDS ORDERED: DULoxetine HCL 30 MG CAP PO SCH (09:00)
[2023-11-07] MEDS: LIDOCAINE 5% 1 PATCH TD SCH (09:08)
[2023-11-07] MEDS: ENOXAPARIN INJ 40 MG/0.4 ML SYR SQ SCH (09:09)
--- NOTE | 2023-11-07 12:11 | Discharge Summary ---
Date of Service November 07, 2023 Admission HPI Per Admitting Provider 42-year-old female with past med history significant for charcoaled Karly tooth disease, peripheral neuropathy comes because of severe left flank and abdominal pain started yesterday. Intially Pain was started below the left shoulder region then radiated to the left groin region ,severe in nature. Also has some nausea. No fevers. No chest pain or shortness of breath. No cough. No headache. No runny nose or sore throat. No dizziness. Appetite is okay. Normal bowel and bladder movements. Has some blood in the urine in UA. She says has on and off back pains but this is severe. Patient also found to have bradycardia in the ER and lyme screen was positive. She states she had Lyme disease 16 years ago. Somewhat hard of hearing Past medical history. As mentioned above Past surgical history is Social history smokes 1 pack cigarettes daily since last 30 years. Alcohol rarely. Smokes marijuana couple of times a week. Family history. Significant for heart disease and cancer Admission Exam Per Admitting Provider General- Not in distress Head- atraumatic Eyes- PERRL. ENT- oropharynx clear Neck- supple, no JVD Lungs- clear to auscultation no wheezing or crackles. Heart- Bradycardia; no murmur, no gallop. Abdomen- normal bowel sounds, soft, nontender, no distension. Extremities- no pretibial edema, no erythema seen. Neuro- alert, oriented x 3; PERRL, no facial palsy; no dysarthria; moves extremities. Skin- warm & dry Principal Diagnosis Abdominal pain, bradycardia Discharge Exam GENERAL: Alert and oriented x3. NAD, on RA. HEENT: No pallor, no icterus. Pupils equal, round and reactive to light. Oral mucosa moist. NECK: No JVD, no neck masses. HEART: S1 and S2 heard. Regular rate and rhythm. Bradycardia. No murmur, no gallop. RESPIRATORY SYSTEM: Normal AP diameter. No accessory muscle use. No wheezing, no crackles. ABDOMEN: Soft, bowel sounds present, nontender, no distention. CENTRAL NERVOUS SYSTEM: No facial droop. Speech is clear. Obeys simple commands. Moves extremities. EXTREMITIES: No edema, no erythema seen. Tender mid-thoracic paraspinal region. Discharge Data Allergies Allergy/AdvReac Type Severity Reaction Status Date / Time latex Allergy Unknown Unknown Verified 11/03/23 19:53 Consultations 11/03/23 22:51 ED Decision to Admit Stat 11/04/23 08:00 Consult Cardiology Routine 11/05/23 08:55 Consult Pain Management Routine Ordered Studies 11/03/23 19:43 CT abd pelvis IV con only Stat 11/03/23 20:42 US Renal Bladder [US renal/blad retro comp] Stat Hospital Course (1) Bradycardia: 42-year-old female with past med significant for Charcot Karly tooth disease, peripheral neuropathy comes because of severe left flank and abdominal pain started the day prior to arrival. Initially pain started below the left shoulder region then radiated to the left groin region ,severe in nature. Patient was found to be bradycardic in the ER and Lyme screen was positive. She is being managed for the following: Bradycardia: Noted at presentation in the ED, incidental finding. Patient asymptomatic. TSH WNL, admitting EKG with heart rate of 43, WA interval 118, QTc 395. Echocardiogram with LVEF 55 to 60%, no major valvular pathology Admitting Lyme screen positive with IgM being positive [patient had history of Lyme several years back] ---> confirmatory test negative for Lyme disease. Patient was started on Rocephin 11/04 and doxycycline 11/04 for concern of Lyme carditis, will discontinue doxycycline 11/06. Doubt this is Lyme disease [WA interval prolongation not noted, HB not noted], but will complete 14-day course of antibiotic at this time. Transition to p.o. Doxy on discharge to complete 14-day course. 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 discussed with cardiology, plan to have her set up with Zio patch monitoring and close cardiology follow-up upon discharge. Heart rate slightly better today, patient feels better. No chest pain. Left flank pain: Patient presented with left flank pain, radicular in nature. Patient is tender left mid Thoracics paraspinal region. Thoracic spine x-ray with no acute finding. Possibly using MS Contin from the street as an outpatient. Pain management evaluated, appreciate recommendation. Status post trigger point injection. Patient reports improving pain. Patient advised to stay inpatient for opiate detoxification, informed of the risks of withdrawal symptoms leading to excessive sweating/vomiting/fever/diarrhea which might lead to arrhythmia/electrolyte abnormalities/. Patient leaving AMA. Patient reports that she will probably go back on taking her "morphine" upon discharge. Patient encouraged to pursue Suboxone clinic on discharge. DVT prophylaxis: Enoxaparin Disposition: Telemetry floor Full code Patient chose to leave AMA, patient encouraged to come back if with worsening withdrawal symptoms. Patient does report that she does have morphine at home which she is going to take. Following instructions were communicated prior to her leaving: Follow-up with your primary care physician within a week time and likely you will need labs CBC/CMP/magnesium/phosphorus. You have been evaluated for your bradycardia, concern for Lyme disease was minimal though we together agreed to complete the course of antibiotic. There is a concern of your CMT dz causing the bradycardia. You will need outpatient Zio patch monitoring, follow-up with your cardiology in 1 to 2 weeks time upon discharge. Establish and follow-up with primary care physician. Coordinate with the PCP office for referral to neurology and Occupational Therapy for long-term management of your Charcot Karly Tooth disease. Pain management evaluated you for your paraspinal muscle spasm and radicular pain of thoracic region. Your non opiate pain medications has been optimized, you have been recommended to stay inpatient for opiate detoxification. You chose to leave AGAINST MEDICAL ADVICE. The withdrawal syndrome is often characterized as flulike illness, dysphoria, insomnia, pupillary dilation, piloerection, yawning, muscle achiness, lacrimation, rhinorrhea, nausea, fever, sweating, vomiting and diarrhea. If you have ongoing fever/sweating/vomiting/diarrhea, contact emergency immediately for management of your withdrawal symptoms. Highly encourage to have yourself set up with Suboxone clinic upon discharge. For your mild pain, you can use [id number] Tylenol. For mild to moderate pain, you can use [id number] 4% lidocaine patch. If ongoing pain, you will need further evaluation by your PCP office. Take your medications as prescribed. Please make sure that you are able to get your medications today by calling your pharmacy before you leave the hospital so that your treatment continuity is not broken. Home Health Attestation I certify that this patient is under my care and that I, or a physicians special education teaching assistant working with me, had a face to-face encounter that meets the [id number] encounter requirements with this patient. The encounter with the patient was in whole, or in part, for the following medical condition, which is the primary reason for home health care (list medical condition): I certify that, based on my findings, the following services are medically necessary home health services: My clinical findings support the need for the above services because: Further, I certify that my clinical findings support that this patient is homebound (i.e. absences from home require considerable and taxing effort and are for medical reasons or mormonism services or infrequently or of short duration when for other reasons) because: Certification for Home Health Services: Based on the above findings, I certify that this patient is confined to the home and needs intermittent half-way care, physical therapy and/or speech therapy or continues to need occupational therapy. The patient is under my care, and I have initiated the establishment of the plan of care. This patient will be followed by a physician who will periodically review the plan of care. Total Time Total Time Spent Total Time Spent (In Minutes): 45 Discharge Plan Discharge Items Patient Disposition: Against Medical Advice Reason For Visit: ABDOMINAL PAIN, BRADYCARDIA Condition on Discharge: Fair Activity: Resume your previous activity Non-emergency contact: Primary Care Provider Follow-up/Referrals: [facility] [Other] ([facility] Outpatient Treatment--[facility], in [place], [place], provides outpatient medication-assisted treatment for opioid use disorders, including methadone and buprenorphine (Suboxone) options. Individual and group counseling is offered by a professional clinical team.) Teresa Medina PA-C [Physician Indoor Plant Technician] - (Date & Time 12/30/2023 11:20 AM Provider Teresa Medina PA-C Department Neurology [facility] ) Shayla Dugan DO [Outside Practitioners] - (Date & Time 11/14/2023 1:40 PM Provider Shayla Dugan DO Department Family Practice [facility] ) Sade Sandoval CRNP [Nurse Practitioner] - (Date & Time 12/25/2023 11:30 AM Provider Sade Sandoval CRNP Department Cardiology, [facility] ) Addtl Lumber Yard Worker Provider Instructions: Follow-up with your primary care physician within a week time and likely you will need labs CBC/CMP/magnesium/phosphorus. You have been evaluated for your bradycardia, concern for Lyme disease was mi nimal though we together agreed to complete the course of antibiotic. There is a concern of your CMT dz causing the bradycardia. You will need outpatient Zio patch monitoring, follow-up with your cardiology in 1 to 2 weeks time upon discharge. Establish and follow-up with primary care physician. Coordinate with the PCP office for referral to neurology and Occupational Therapy for long-term man agement of your Charcot Kalry Tooth disease. Pain management evaluated you for your paraspinal muscle spasm and radicular pain of thoracic region. Your non opiate pain medications has been optimized, you have been recommended to stay inpatient for opiate detoxification. You chose to leave AGAINST MEDICAL ADVICE. The withdrawal syndrome is often characterized as flulike illness, dysphoria, insomnia, pupillary dilation, piloerection, yawning, muscle achiness, lacrimation, rhinorrhea, nausea, fever, sweating, vomiting and diarrhea. If you have ongoing fever/sweating/vomiting/diarrhea, contact emergency immediately for management of your withdrawal symptoms. Highly encourage to have yourself set up with Suboxone clinic upon discharge. For your mild pain, you can use [id number]-tiq-[id number] Tylenol. For mild to moderate pain, you can use vbvr-rkf-qvoxluv 4% lidocaine patch. If ongoing pain, you will need further evaluation by your PCP office. Take your medications as prescribed. Please make sure that you are able to get your medications today by calling your pharmacy before you leave the hospital so that your treatment continuity is not broken. Pending Studies at Discharge: No Stand-Alone Forms: [facility], Smoking Cessation Medications and DC Order Prescriptions: New nicotine [Nicoderm CQ] 21 mg/24 hr Patch 24 Hour 21 mg transdermal DAILY Qty: 28 0RF duloxetine 30 mg Capsule,Delayed Release(Dr/Ec) 30 mg PO QAM Qty: 30 0RF gabapentin 300 mg Capsule 300 mg PO TID Qty: 90 0RF Zostrix 0.033 % Cream 1 applic EXT TID PRN (Reason: pain) Qty: 56.6 0RF doxycycline hyclate 100 mg tablet 100 mg PO BID 11 Days Qty: 22 0RF Probiotic 3 billion cell capsule 3,000 mmu cells PO DAILY 14 Days Qty: 14 0RF Rx Instructions: administer with a meal Discharge Orders: Left Against Medical Advice (Routine); Ordered 11/07/23 Ordered By: Jun Michel Admission Data Admit Date/Time: 11/04/23 03:03 Attending Provider: Jun Michel Admit Provider: Rik Tucker Primary Care Provider: PCP,NO Other Providers: Rik Tucker; Astrid Antony
== END 2023-11-07 14:21 | disposition left against medical advice (07) | DRG 74 ==
LOC: ED 18:43 → 2S 11-04 03:03 → SUATTDRO 11-04 03:03 → 2S 11-04 04:17
DX: R00.1 Bradycardia, unspecified; G60.0 Hereditary motor and sensory neuropathy; F17.210 Nicotine dependence, cigarettes, uncomplicated; A69.20 Lyme disease, unspecified; R10.9 Unspecified abdominal pain; F11.23 Opioid dependence with withdrawal; Z91.040 Latex allergy status; M54.10 Radiculopathy, site unspecified